=== PATIENT | female | born 1950 | race Two or more races ===

== ENCOUNTER 2020-11-23 02:24 | Inpatient (IN) | payer MEDICARE, MEDICAID ==
[~2020-11-23] VITALS: Ht 162.6 cm; Wt 71.7 kg
[2020-11-23] MEDS ORDERED: DEXAMETHASONE 4MG/ML 1ML VIAL IV ONE (02:30)
[2020-11-23 03:09] LABS: BASOPHILS % 0.7 % (0.0-2.0); HEMATOCRIT. 37.3 % (36.0-48.0); HEMOGLOBIN. 12.5 g/dL (12.0-16.0); LYMPHOCYTES % 11.9 % (20.0-50.0); MEAN CORPUSCULAR HEMOGLOBIN 27.1 pg (28.0-32.0); MEAN CORPUSCULAR VOLUME 80.4 fL (81.0-99.0); MEAN PLATELET VOLUME 9.9 fl (7.4-10.4); NEUTROPHILS % 83.4 % (40.0-76.0); RED BLOOD CELL COUNT 4.64 mill/uL (4.2-5.4)
[2020-11-23 03:14] LABS: CHLORIDE 106 mEq/L (98-107); PLATELET 37 x1000/uL (130-400)
[2020-11-23 03:20] LABS: D-DIMER 0.99 mg/L FEU (<0.50); PROTHROMBIN TIME 10.3 sec (9.6-11.0)
[2020-11-23 04:36] LABS: CLARITY URINE CLEAR (CLEAR); COLOR URINE YELLOW (YELLOW); KETONES URINE NEGATIVE (NEGATIVE); LEUKOCYTE ESTERASE URINE NEGATIVE (NEGATIVE); NITRITE URINE NEGATIVE (NEGATIVE); OCCULT BLOOD URINE NEGATIVE (NEGATIVE); PROTEIN URINE 1+ (NEGATIVE); SPECIFIC GRAVITY URINE 1.013 (1.005-1.030)
[2020-11-23] MEDS ORDERED: CLONIDINE 0.1MG TABLET PO PRN (20:00)
[2020-11-23] MEDS ORDERED: GUAIFENESIN 200MG/10ML SUGAR FREE UDC PO PRN (20:00)
[2020-11-23] MEDS ORDERED: DOCUSATE SODIUM 100MG CAPSULE PO PRN (20:00)
[2020-11-23] MEDS ORDERED: HYDROCODONE/ACETAMINOPHEN 5/325MG TABLET PO PRN (20:00)
[2020-11-23] MEDS ORDERED: DIPHENHYDRAMINE 50MG/ML VIAL IV PRN (20:00)
[2020-11-23] MEDS ORDERED: MAGNESIUM/ALUMINUM HYDROXIDE/SIMETHICONE 30ML UDC PO PRN (20:00)
[2020-11-23] MEDS ORDERED: MORPHINE SULFATE 2 MG/ML CPJ (NOT FOR IM USE) IV PRN (20:00)
[2020-11-23] MEDS ORDERED: ALBUTEROL 6.7GM HFA INHALER ORI PRN (20:00)
[2020-11-23] MEDS ORDERED: LORAZEPAM 2MG/ML CPJ IV PRN (20:00)
[2020-11-24] MEDS: CEFTRIAXONE 1 G PREMIX 50 ML IV SCH ×2 (00:14→20:46)
[2020-11-24] MEDS: AZITHROMYCIN 500 MG in DEXT 5% WATER 250 ML IV SCH ×2 (02:19→20:00)
[2020-11-24 05:15] LABS: BASOPHILS % 0.1 % (0.0-2.0); CHLORIDE 107 mEq/L (98-107); HEMATOCRIT. 36.5 % (36.0-48.0); HEMOGLOBIN. 12.3 g/dL (12.0-16.0); LYMPHOCYTES % 14.1 % (20.0-50.0); MEAN CORPUSCULAR HEMOGLOBIN 26.6 pg (28.0-32.0); MEAN CORPUSCULAR VOLUME 79.1 fL (81.0-99.0); MEAN PLATELET VOLUME 10.3 fl (7.4-10.4); MONOCYTES % 9.2 % (2.0-8.0); NEUTROPHILS % 76.6 % (40.0-76.0); PLATELET 60 x1000/uL (130-400); RED BLOOD CELL COUNT 4.61 mill/uL (4.2-5.4); RED CELL DISTRIBUTION WIDTH 14.5 % (11.6-14.6)
[2020-11-24] MEDS: DEXAMETHASONE 4MG/ML 1ML VIAL IV SCH (09:00)
[2020-11-24] MEDS: ASCORBIC ACID 500 MG TABLET PO SCH (20:46)
[2020-11-24] MEDS: FAMOTIDINE 20MG/2ML VIAL IV SCH (20:46)
[2020-11-25 04:13] LABS: BG BASE EXCESS 2.3 mmol/L (-2.0-2.0); BG CARBOXYHEMOGLOBIN 0.3 % (0.5-1.5); BG DEOXYHEMOGLOBIN 1.4 % (0.0-5.0); BG FRACTION INSPIRED OXYGEN 100; BG HCO3 ACT 25.7 mmol/L (22.0-26.0); BG METHEMOGLOBIN 0.3 % (0.0-1.5); BG OXYGEN SATURATION 98.6 % (92.0-98.5); BG PCO2 36.2 mmHg (35.0-45.0); BG PH 7.469 (7.350-7.450); BG PO2 146.6 mmHg (75.0-100.0); BG SAMPLE SITE RIGHT RADIAL; BG TOTAL HEMOGLOBIN 15.8 g/dL (12.0-18.0); BG VENT MODE MASK - BIPAP
[2020-11-25] MEDS: ERGOCALCIFEROL 50000UNITS CAPSULE PO SCH (11:32)
[2020-11-25] MEDS: ZINC SULFATE 220 MG ( 50 ) CAPSULE PO SCH (11:32)
[2020-11-25] MEDS: FAMOTIDINE 20MG/2ML VIAL IV SCH ×2 (11:33→21:17)
[2020-11-25] MEDS: DEXAMETHASONE 4MG/ML 1ML VIAL IV SCH (11:33)
[2020-11-25] MEDS: ASCORBIC ACID 500 MG TABLET PO SCH ×2 (11:33→21:17)
[2020-11-25 12:00] VITALS: BP 138/64
[2020-11-25 16:00] VITALS: BP 154/66
[2020-11-25 16:04] VITALS: BP 108/46
[2020-11-25] MEDS ORDERED: GABA-532 PO (17:31)
[2020-11-25] MEDS ORDERED: OMEP20CA14 PO (17:31)
[2020-11-25] MEDS ORDERED: SIMV-43 PO (17:32)
[2020-11-25] MEDS ORDERED: NAPR-681 PO (17:33)
[2020-11-25 20:00] VITALS: BP 136/56
[2020-11-25] MEDS ORDERED: AZITHROMYCIN 500 MG in DEXT 5% WATER 250 ML IV SCH (20:00)
[2020-11-26] VITALS: BP 118/63
[2020-11-26] MEDS: CEFTRIAXONE 1,000 MG in DEXTROSE 5% WATER 50 ML IV SCH ×2 (00:24→20:47)
[2020-11-26 04:00] VITALS: BP 136/56
[2020-11-26 08:00] VITALS: BP 148/64
[2020-11-26] MEDS: DEXAMETHASONE 4MG/ML 1ML VIAL IV SCH (08:19)
[2020-11-26] MEDS: ZINC SULFATE 220 MG ( 50 ) CAPSULE PO SCH (08:19)
[2020-11-26] MEDS: ASCORBIC ACID 500 MG TABLET PO SCH ×2 (08:20→20:47)
[2020-11-26] MEDS: FAMOTIDINE 20MG/2ML VIAL IV SCH ×2 (08:20→20:47)
[2020-11-26 11:46] LABS: BG CARBOXYHEMOGLOBIN 0.3 % (0.5-1.5); BG DEOXYHEMOGLOBIN 5.8 % (0.0-5.0); BG FRACTION INSPIRED OXYGEN 70; BG HCO3 ACT 23.2 mmol/L (22.0-26.0); BG OXYGEN SATURATION 94.2 % (92.0-98.5); BG OXYHEMOGLOBIN 93.9 % (94.0-97.0); BG PCO2 33.4 mmHg (35.0-45.0); BG PH 7.459 (7.350-7.450); BG PO2 73.1 mmHg (75.0-100.0); BG SAMPLE SITE RIGHT RADIAL; BG TOTAL HEMOGLOBIN 13.5 g/dL (12.0-18.0); BG VENT MODE MASK - BIPAP
[2020-11-26 12:00] VITALS: BP 136/55
[2020-11-26 12:05] LABS: HEMATOCRIT 37.4 % (36.0-48.0); HEMOGLOBIN 12.4 g/dL (12.0-16.0); MEAN CORPUSCULAR HEMOGLOBIN 26.6 pg (28.0-32.0); MEAN CORPUSCULAR VOLUME 79.8 fL (81.0-99.0); PLATELET 80 x1000/uL (130-400); RED BLOOD CELL COUNT 4.68 mill/uL (4.2-5.4); RED CELL DISTRIBUTION WIDTH 14.2 % (11.6-14.6)
[2020-11-26] MEDS: FUROSEMIDE 20MG/2ML VIAL IVP SCH (15:49)
[2020-11-26 16:00] VITALS: BP 153/58
[2020-11-26 20:00] VITALS: BP 128/65
[2020-11-26] MEDS: AZITHROMYCIN 500 MG TABLET PO SCH (21:16)
[2020-11-27] VITALS: BP 131/61
[2020-11-27 04:00] VITALS: BP 122/59
[2020-11-27] MEDS: ASCORBIC ACID 500 MG TABLET PO SCH ×2 (08:26→21:14)
[2020-11-27] MEDS: ZINC SULFATE 220 MG ( 50 ) CAPSULE PO SCH (08:26)
[2020-11-27] MEDS: FAMOTIDINE 20MG/2ML VIAL IV SCH ×2 (08:26→21:14)
[2020-11-27] MEDS: DEXAMETHASONE 4MG/ML 1ML VIAL IV SCH (08:26)
[2020-11-27] MEDS: FUROSEMIDE 20MG/2ML VIAL IVP SCH (08:26)
[2020-11-27 10:10] VITALS: BP 124/69
[2020-11-27] MEDS: ONDANSETRON HCL 4MG/2ML INJ IV PRN (11:25)
[2020-11-27 12:00] VITALS: BP 116/44
[2020-11-27] MEDS: SODIUM CHLORIDE 0.9% INJ 3ML FLUSH IVF SCH (14:00)
[2020-11-27 16:00] VITALS: BP 125/59
[2020-11-27 20:00] VITALS: BP 123/61
[2020-11-27] MEDS: CEFTRIAXONE 1,000 MG in DEXTROSE 5% WATER 50 ML IV SCH (20:00)
[2020-11-27] MEDS: AZITHROMYCIN 500 MG TABLET PO SCH (21:14)
[2020-11-28] VITALS: BP 145/59
[2020-11-28] MEDS: ONDANSETRON HCL 4MG/2ML INJ IV PRN ×2 (02:44→08:49)
[2020-11-28] MEDS: SODIUM CHLORIDE 0.9% INJ 3ML FLUSH IVF SCH ×3 (02:44→22:06)
[2020-11-28 04:00] VITALS: BP 133/74
[2020-11-28 08:00] VITALS: BP 121/61
[2020-11-28] MEDS: DEXAMETHASONE 4MG/ML 1ML VIAL IV SCH (08:49)
[2020-11-28] MEDS: FAMOTIDINE 20MG/2ML VIAL IV SCH ×2 (08:49→22:06)
[2020-11-28] MEDS: ZINC SULFATE 220 MG ( 50 ) CAPSULE PO SCH (08:50)
[2020-11-28] MEDS: ASCORBIC ACID 500 MG TABLET PO SCH ×2 (08:50→22:06)
[2020-11-28] MEDS: FUROSEMIDE 20MG/2ML VIAL IVP SCH (08:50)
[2020-11-28 12:00] VITALS: BP 130/58
[2020-11-28 13:55] LABS: HEMATOCRIT 42.8 % (36.0-48.0); MEAN CORPUSCULAR HEMOGLOBIN 26.3 pg (28.0-32.0); MEAN CORPUSCULAR VOLUME 80.5 fL (81.0-99.0); PLATELET 99 x1000/uL (130-400); RED BLOOD CELL COUNT 5.31 mill/uL (4.2-5.4); RED CELL DISTRIBUTION WIDTH 14.1 % (11.6-14.6)
[2020-11-28 16:00] VITALS: BP 126/60
[2020-11-28 20:00] VITALS: BP 108/55
[2020-11-29] VITALS: BP 122/69
[2020-11-29 04:00] VITALS: BP 126/60
[2020-11-29] MEDS: SODIUM CHLORIDE 0.9% INJ 3ML FLUSH IVF SCH ×3 (05:53→21:30)
[2020-11-29 08:00] VITALS: BP 125/43
[2020-11-29] MEDS: ZINC SULFATE 220 MG ( 50 ) CAPSULE PO SCH (08:41)
[2020-11-29] MEDS: ASCORBIC ACID 500 MG TABLET PO SCH ×2 (08:41→21:29)
[2020-11-29] MEDS: FUROSEMIDE 20MG/2ML VIAL IVP SCH (08:41)
[2020-11-29] MEDS: ONDANSETRON HCL 4MG/2ML INJ IV PRN (08:41)
[2020-11-29] MEDS: FAMOTIDINE 20MG/2ML VIAL IV SCH ×2 (08:41→21:30)
[2020-11-29] MEDS: DEXAMETHASONE 4MG/ML 1ML VIAL IV SCH (08:41)
[2020-11-29 16:00] VITALS: BP 113/53
[2020-11-29 20:00] VITALS: BP 117/69
[2020-11-30] VITALS: BP 125/68
[2020-11-30] MEDS: SODIUM CHLORIDE 0.9% INJ 3ML FLUSH IVF SCH ×3 (03:21→20:56)
[2020-11-30 04:00] VITALS: BP 118/73
[2020-11-30 08:00] VITALS: BP 123/70
[2020-11-30] MEDS: DEXAMETHASONE 4MG/ML 1ML VIAL IV SCH (08:27)
[2020-11-30] MEDS: FUROSEMIDE 20MG/2ML VIAL IVP SCH (08:27)
[2020-11-30] MEDS: ZINC SULFATE 220 MG ( 50 ) CAPSULE PO SCH (08:27)
[2020-11-30] MEDS: ASCORBIC ACID 500 MG TABLET PO SCH ×2 (08:27→20:56)
[2020-11-30] MEDS: ASPIRIN 81MG EC TABLET PO SCH (08:27)
[2020-11-30] MEDS: FAMOTIDINE 20MG/2ML VIAL IV SCH ×2 (08:27→20:56)
[2020-11-30] MEDS: ONDANSETRON HCL 4MG/2ML INJ IV PRN (08:27)
[2020-11-30 12:00] VITALS: BP 106/69
[2020-11-30 16:00] VITALS: BP 109/68
[2020-11-30 20:00] VITALS: BP 112/59
[2020-12-01] VITALS: BP 137/87
[2020-12-01 04:00] VITALS: BP 130/89
[2020-12-01] MEDS: SODIUM CHLORIDE 0.9% INJ 3ML FLUSH IVF SCH ×3 (05:45→21:45)
[2020-12-01] MEDS: ZINC SULFATE 220 MG ( 50 ) CAPSULE PO SCH (09:58)
[2020-12-01] MEDS: FUROSEMIDE 20MG/2ML VIAL IVP SCH (09:58)
[2020-12-01] MEDS: FAMOTIDINE 20MG/2ML VIAL IV SCH ×2 (09:58→21:44)
[2020-12-01] MEDS: ASPIRIN 81MG EC TABLET PO SCH (09:58)
[2020-12-01] MEDS: ASCORBIC ACID 500 MG TABLET PO SCH ×2 (09:59→21:45)
[2020-12-01] MEDS: DEXAMETHASONE 4MG/ML 1ML VIAL IV SCH (10:00)
[2020-12-01 10:38] VITALS: BP 111/63
[2020-12-01 12:00] VITALS: BP 98/55
[2020-12-01 13:01] LABS: HEMATOCRIT 49.9 % (36.0-48.0); HEMOGLOBIN 15.9 g/dL (12.0-16.0); MEAN CORPUSCULAR HEMOGLOBIN 26.1 pg (28.0-32.0); MEAN CORPUSCULAR VOLUME 81.8 fL (81.0-99.0); PLATELET 88 x1000/uL (130-400); RED CELL DISTRIBUTION WIDTH 14.2 % (11.6-14.6)
[2020-12-01 16:00] VITALS: BP 121/80
[2020-12-01 20:00] VITALS: BP 114/70
[2020-12-02] VITALS: BP 123/77
[2020-12-02 04:00] VITALS: BP 125/77
[2020-12-02] MEDS: SODIUM CHLORIDE 0.9% INJ 3ML FLUSH IVF SCH ×2 (05:06→20:42)
[2020-12-02 07:15] LABS: HEMATOCRIT. 49.4 % (36.0-48.0); HEMOGLOBIN. 15.9 g/dL (12.0-16.0); MEAN CORPUSCULAR HEMOGLOBIN 26.2 pg (28.0-32.0); MEAN CORPUSCULAR VOLUME 81.1 fL (81.0-99.0); MEAN PLATELET VOLUME 11.6 fl (7.4-10.4); PLATELET 85 x1000/uL (130-400); RED BLOOD CELL COUNT 6.09 mill/uL (4.2-5.4); RED CELL DISTRIBUTION WIDTH 14.6 % (11.6-14.6)
[2020-12-02 08:00] VITALS: BP 129/69
[2020-12-02] MEDS: FAMOTIDINE 20MG/2ML VIAL IV SCH ×2 (10:31→20:24)
[2020-12-02] MEDS: DEXAMETHASONE 4MG/ML 1ML VIAL IV SCH (10:31)
[2020-12-02] MEDS: ERGOCALCIFEROL 50000UNITS CAPSULE PO SCH (10:31)
[2020-12-02] MEDS: ZINC SULFATE 220 MG ( 50 ) CAPSULE PO SCH (10:31)
[2020-12-02] MEDS: FUROSEMIDE 20MG/2ML VIAL IVP SCH (10:31)
[2020-12-02] MEDS: ASPIRIN 81MG EC TABLET PO SCH (10:31)
[2020-12-02] MEDS: ASCORBIC ACID 500 MG TABLET PO SCH ×2 (10:32→20:24)
[2020-12-02 12:00] VITALS: BP 123/67
[2020-12-02 12:12] LABS: NUCLEATED RED BLOOD CELLS 1 /100 WBC; PLATELET ESTIMATE DECREAS
[2020-12-02] MEDS ORDERED: SODIUM CHLORIDE 0.45% 500 ML IV ONE (15:00)
[2020-12-02 16:00] VITALS: BP 120/58
[2020-12-02 16:23] LABS: BG BASE EXCESS -0.9 mmol/L (-2.0-2.0); BG CARBOXYHEMOGLOBIN 0.3 % (0.5-1.5); BG DEOXYHEMOGLOBIN 5.4 % (0.0-5.0); BG FRACTION INSPIRED OXYGEN 100; BG METHEMOGLOBIN 0.4 % (0.0-1.5); BG OXYGEN SATURATION 94.6 % (92.0-98.5); BG OXYHEMOGLOBIN 93.9 % (94.0-97.0); BG PCO2 32.3 mmHg (35.0-45.0); BG PH 7.451 (7.350-7.450); BG PO2 76.4 mmHg (75.0-100.0); BG SAMPLE SITE RIGHT BRACHIAL; BG TOTAL HEMOGLOBIN 17.5 g/dL (12.0-18.0); BG VENT MODE MASK - NRB
[2020-12-02 20:00] VITALS: BP_SYST 123; BP_SYST 132; BP_DIAS 69; BP_DIAS 94
[2020-12-03] VITALS: BP 131/74
[2020-12-03 04:00] VITALS: BP 101/57
[2020-12-03] MEDS: SODIUM CHLORIDE 0.9% INJ 3ML FLUSH IVF SCH ×3 (05:22→22:14)
[2020-12-03 08:00] VITALS: BP 134/89
[2020-12-03] MEDS ORDERED: SODIUM CHLORIDE 0.45% 1,000 ML IV SCH (09:00)
[2020-12-03] MEDS: FAMOTIDINE 20MG/2ML VIAL IV SCH ×2 (09:20→22:13)
[2020-12-03] MEDS: DEXAMETHASONE 4MG/ML 1ML VIAL IV SCH (09:20)
[2020-12-03] MEDS: ZINC SULFATE 220 MG ( 50 ) CAPSULE PO SCH (09:21)
[2020-12-03] MEDS: ASCORBIC ACID 500 MG TABLET PO SCH ×3 (09:21→22:13)
[2020-12-03] MEDS: ASPIRIN 81MG EC TABLET PO SCH (09:21)
[2020-12-03 12:00] VITALS: BP 130/84
[2020-12-03] MEDS: DEXTROSE 5% WATER 1,000 ML IV SCH ×2 (13:55→22:13)
[2020-12-03 15:31] LABS: HEMATOCRIT. 49.6 % (36.0-48.0); HEMOGLOBIN. 15.5 g/dL (12.0-16.0); MEAN CORPUSCULAR VOLUME 83.3 fL (81.0-99.0); RED BLOOD CELL COUNT 5.95 mill/uL (4.2-5.4); RED CELL DISTRIBUTION WIDTH 15.3 % (11.6-14.6)
[2020-12-03 16:00] VITALS: BP 149/83
[2020-12-03 16:32] LABS: MEAN PLATELET VOLUME 11.5 fl (7.4-10.4); PLATELET 65 x1000/uL (130-400)
[2020-12-03 16:34] LABS: NUCLEATED RED BLOOD CELLS 2 /100 WBC; PLATELET ESTIMATE DECREASED
[2020-12-03 20:00] VITALS: BP 130/90
[2020-12-04] VITALS: BP 134/47
[2020-12-04 04:00] VITALS: BP 128/53
[2020-12-04] MEDS: SODIUM CHLORIDE 0.9% INJ 3ML FLUSH IVF SCH ×3 (06:13→21:25)
[2020-12-04] MEDS: DEXTROSE 5% WATER 1,000 ML IV SCH (07:00)
[2020-12-04 08:00] VITALS: BP 109/77
[2020-12-04] MEDS: ZINC SULFATE 220 MG ( 50 ) CAPSULE PO SCH (08:46)
[2020-12-04] MEDS: FAMOTIDINE 20MG/2ML VIAL IV SCH ×2 (08:46→21:25)
[2020-12-04] MEDS: ASPIRIN 81MG EC TABLET PO SCH (08:46)
[2020-12-04] MEDS: DEXAMETHASONE 4MG/ML 1ML VIAL IV SCH (08:46)
[2020-12-04] MEDS: ASCORBIC ACID 500 MG TABLET PO SCH ×2 (08:47→21:25)
[2020-12-04] MEDS: SODIUM CHLORIDE 0.45% 1,000 ML IV SCH ×2 (10:44→16:07)
[2020-12-04 12:00] VITALS: BP 127/70
[2020-12-04 14:05] LABS: INR 1.2; PARTIAL THROMBOPLASTIN TIME 22.6 sec (23.4-31.0); PROTHROMBIN TIME 12.4 sec (9.6-11.0)
[2020-12-04 16:00] VITALS: BP 140/66
[2020-12-04 20:00] VITALS: BP 136/66
[2020-12-05] VITALS: BP 144/59
[2020-12-05] MEDS: SODIUM CHLORIDE 0.45% 1,000 ML IV SCH ×3 (03:09→19:01)
[2020-12-05 04:00] VITALS: BP 139/56
[2020-12-05] MEDS: SODIUM CHLORIDE 0.9% INJ 3ML FLUSH IVF SCH ×3 (05:51→21:21)
[2020-12-05 07:05] LABS: HEMATOCRIT. 38.1 % (36.0-48.0); HEMOGLOBIN. 12.3 g/dL (12.0-16.0); MEAN CORPUSCULAR HEMOGLOBIN 26.5 pg (28.0-32.0); RED BLOOD CELL COUNT 4.64 mill/uL (4.2-5.4); RED CELL DISTRIBUTION WIDTH 14.8 % (11.6-14.6)
[2020-12-05 08:00] VITALS: BP 97/58
[2020-12-05] MEDS: ASCORBIC ACID 500 MG TABLET PO SCH ×2 (09:00→21:21)
[2020-12-05 09:38] LABS: NUCLEATED RED BLOOD CELLS 1 /100 WBC
[2020-12-05 09:39] LABS: PLATELET ESTIMATE SLIGHTLY DECREASED
[2020-12-05] MEDS: ZINC SULFATE 220 MG ( 50 ) CAPSULE PO SCH (10:00)
[2020-12-05] MEDS: ASPIRIN 81MG EC TABLET PO SCH (10:01)
[2020-12-05] MEDS: FAMOTIDINE 20MG/2ML VIAL IV SCH (10:01)
[2020-12-05 12:00] VITALS: BP 116/59
[2020-12-05 16:00] VITALS: BP_SYST 139; BP_SYST 171; BP_DIAS 58; BP_DIAS 62
[2020-12-05 20:00] VITALS: BP 113/40
[2020-12-06 00:35] VITALS: BP 121/54
[2020-12-06] MEDS: SODIUM CHLORIDE 0.45% 1,000 ML IV SCH ×3 (01:41→17:41)
[2020-12-06 04:00] VITALS: BP 92/47
[2020-12-06] MEDS: SODIUM CHLORIDE 0.9% INJ 3ML FLUSH IVF SCH ×3 (05:33→22:13)
[2020-12-06 08:00] VITALS: BP 112/44
[2020-12-06] MEDS: ASPIRIN 81MG EC TABLET PO SCH (08:53)
[2020-12-06] MEDS: ZINC SULFATE 220 MG ( 50 ) CAPSULE PO SCH (08:54)
[2020-12-06] MEDS: FAMOTIDINE 20MG TABLET PO SCH (08:54)
[2020-12-06] MEDS: ASCORBIC ACID 500 MG TABLET PO SCH ×2 (08:54→22:13)
[2020-12-06 20:00] VITALS: BP 133/53
[2020-12-07] VITALS: BP 152/52
[2020-12-07] MEDS: SODIUM CHLORIDE 0.45% 1,000 ML IV SCH ×3 (02:01→23:05)
[2020-12-07 04:30] VITALS: BP 126/63
[2020-12-07] MEDS: SODIUM CHLORIDE 0.9% INJ 3ML FLUSH IVF SCH ×3 (06:18→23:06)
[2020-12-07 07:44] LABS: HEMATOCRIT. 35.8 % (36.0-48.0); HEMOGLOBIN. 11.8 g/dL (12.0-16.0); MEAN CORPUSCULAR VOLUME 81.8 fL (81.0-99.0); RED BLOOD CELL COUNT 4.37 mill/uL (4.2-5.4); RED CELL DISTRIBUTION WIDTH 14.6 % (11.6-14.6)
[2020-12-07 10:06] LABS: NUCLEATED RED BLOOD CELLS 1 /100 WBC
[2020-12-07 10:07] LABS: PLATELET ESTIMATE MARKEDLY DECREASED
[2020-12-07 10:31] LABS: PLATELET 18 x1000/uL (130-400)
[2020-12-07 12:00] VITALS: BP 135/62
[2020-12-07] MEDS: ASCORBIC ACID 500 MG TABLET PO SCH ×2 (12:33→23:05)
[2020-12-07] MEDS: FAMOTIDINE 20MG TABLET PO SCH (12:33)
[2020-12-07] MEDS: ZINC SULFATE 220 MG ( 50 ) CAPSULE PO SCH (12:33)
[2020-12-07] MEDS: ACETAMINOPHEN 325MG TABLET PO PRN (12:36)
[2020-12-07] MEDS: ASPIRIN 81MG EC TABLET PO SCH (12:36)
[2020-12-07 20:00] VITALS: BP 136/57
[2020-12-08] VITALS (7 sets, daily range): BP systolic 126–148; BP diastolic 54–75
[2020-12-08] MEDS: SODIUM CHLORIDE 0.9% INJ 3ML FLUSH IVF SCH ×3 (06:30→20:52)
[2020-12-08 07:05] LABS: HEMATOCRIT. 36.5 % (36.0-48.0); HEMOGLOBIN. 12.2 g/dL (12.0-16.0); MEAN CORPUSCULAR HEMOGLOBIN 27.5 pg (28.0-32.0); MEAN PLATELET VOLUME 10.8 fl (7.4-10.4); RED BLOOD CELL COUNT 4.45 mill/uL (4.2-5.4); RED CELL DISTRIBUTION WIDTH 14.7 % (11.6-14.6)
[2020-12-08 08:57] LABS: PLATELET 16 x1000/uL (130-400)
[2020-12-08 09:20] LABS: PLATELET ESTIMATE MARKEDLY DECREASED
[2020-12-08] MEDS: ASCORBIC ACID 500 MG TABLET PO SCH ×2 (09:27→20:52)
[2020-12-08] MEDS: ZINC SULFATE 220 MG ( 50 ) CAPSULE PO SCH (09:27)
[2020-12-08] MEDS: ASPIRIN 81MG EC TABLET PO SCH (09:27)
[2020-12-08] MEDS: FAMOTIDINE 20MG TABLET PO SCH (09:28)
[2020-12-08] MEDS: SODIUM CHLORIDE 0.45% 1,000 ML IV SCH ×2 (12:54→21:07)
[2020-12-09] VITALS: BP 157/74
[2020-12-09 04:00] VITALS: BP 146/59
[2020-12-09] MEDS: SODIUM CHLORIDE 0.9% INJ 3ML FLUSH IVF SCH ×3 (05:15→21:18)
[2020-12-09 08:00] VITALS: BP 142/51
[2020-12-09] MEDS: ASCORBIC ACID 500 MG TABLET PO SCH ×2 (09:00→21:18)
[2020-12-09] MEDS ORDERED: FUROSEMIDE 40MG/4ML VIAL IVP NR (10:30)
[2020-12-09] MEDS: ERGOCALCIFEROL 50000UNITS CAPSULE PO SCH (10:37)
[2020-12-09] MEDS: ZINC SULFATE 220 MG ( 50 ) CAPSULE PO SCH (10:37)
[2020-12-09] MEDS: FAMOTIDINE 20MG TABLET PO SCH (10:37)
[2020-12-09 12:00] VITALS: BP 101/68
[2020-12-09 12:18] LABS: HEMATOCRIT 34.6 % (36.0-48.0); HEMOGLOBIN 11.4 g/dL (12.0-16.0); MEAN CORPUSCULAR HEMOGLOBIN 26.7 pg (28.0-32.0); MEAN CORPUSCULAR VOLUME 81.3 fL (81.0-99.0); RED BLOOD CELL COUNT 4.25 mill/uL (4.2-5.4)
[2020-12-09 12:41] LABS: PLATELET 30 x1000/uL (130-400)
[2020-12-09 16:00] VITALS: BP 117/54
[2020-12-09 20:00] VITALS: BP 121/55
[2020-12-10] VITALS: BP 121/55
[2020-12-10 04:00] VITALS: BP 128/53
[2020-12-10] MEDS: SODIUM CHLORIDE 0.9% INJ 3ML FLUSH IVF SCH ×3 (06:36→22:24)
[2020-12-10 08:00] VITALS: BP 131/45
[2020-12-10] MEDS: ASCORBIC ACID 500 MG TABLET PO SCH ×2 (09:10→22:24)
[2020-12-10] MEDS: FAMOTIDINE 20MG TABLET PO SCH (09:10)
[2020-12-10] MEDS: ZINC SULFATE 220 MG ( 50 ) CAPSULE PO SCH (09:10)
[2020-12-10 12:00] VITALS: BP 127/64
[2020-12-10 12:01] LABS: HEMATOCRIT. 37.9 % (36.0-48.0); HEMOGLOBIN. 12.3 g/dL (12.0-16.0); MEAN CORPUSCULAR HEMOGLOBIN 26.4 pg (28.0-32.0); MEAN CORPUSCULAR VOLUME 81.2 fL (81.0-99.0); PLATELET 55 x1000/uL (130-400); RED BLOOD CELL COUNT 4.67 mill/uL (4.2-5.4)
[2020-12-10] MEDS: DEXTROSE 5% WATER 1,000 ML IV SCH (14:44)
[2020-12-10 16:00] VITALS: BP 134/82
[2020-12-10 18:00] LABS: PLATELET ESTIMATE DECREASED
[2020-12-10 20:00] VITALS: BP 125/70
[2020-12-11] VITALS: BP 111/71
[2020-12-11 04:00] VITALS: BP 150/75
[2020-12-11] MEDS: DEXTROSE 5% WATER 1,000 ML IV SCH ×2 (06:49→21:25)
[2020-12-11] MEDS: SODIUM CHLORIDE 0.9% INJ 3ML FLUSH IVF SCH ×3 (06:49→21:10)
[2020-12-11 08:00] VITALS: BP 141/69
[2020-12-11] MEDS: FAMOTIDINE 20MG TABLET PO SCH (09:22)
[2020-12-11] MEDS: ZINC SULFATE 220 MG ( 50 ) CAPSULE PO SCH (09:22)
[2020-12-11 11:03] LABS: HEMATOCRIT. 38.6 % (36.0-48.0); HEMOGLOBIN. 12.4 g/dL (12.0-16.0); MEAN CORPUSCULAR HEMOGLOBIN 26.3 pg (28.0-32.0); MEAN CORPUSCULAR VOLUME 81.8 fL (81.0-99.0); MEAN PLATELET VOLUME 11.1 fl (7.4-10.4); PLATELET 82 x1000/uL (130-400); RED BLOOD CELL COUNT 4.72 mill/uL (4.2-5.4); RED CELL DISTRIBUTION WIDTH 14.8 % (11.6-14.6)
[2020-12-11 12:00] VITALS: BP 146/63
[2020-12-11] MEDS ORDERED: POTASSIUM CHLORIDE 20MEQ/PACKET PO SCH (12:00)
[2020-12-11] MEDS: ASCORBIC ACID 500 MG TABLET PO SCH ×2 (13:41→21:10)
[2020-12-11 14:44] LABS: PLATELET ESTIMATE DECREASED
[2020-12-11 16:00] VITALS: BP 129/72
[2020-12-11 20:00] VITALS: BP 140/68
[2020-12-12] VITALS: BP 151/60
[2020-12-12 04:00] VITALS: BP 128/78
[2020-12-12 07:51] LABS: EOSINOPHILS % 5.6 % (0.0-5.0); HEMATOCRIT. 33.1 % (36.0-48.0); HEMOGLOBIN. 10.6 g/dL (12.0-16.0); LYMPHOCYTES % 9.7 % (20.0-50.0); MEAN CORPUSCULAR HEMOGLOBIN 26.3 pg (28.0-32.0); MEAN PLATELET VOLUME 11.1 fl (7.4-10.4); MONOCYTES % 3.6 % (2.0-8.0); NEUTROPHILS % 80.1 % (40.0-76.0); PLATELET 104 x1000/uL (130-400); RED BLOOD CELL COUNT 4.04 mill/uL (4.2-5.4); RED CELL DISTRIBUTION WIDTH 15.1 % (11.6-14.6)
[2020-12-12 08:00] VITALS: BP 107/77
[2020-12-12 08:20] LABS: PHOSPHORUS 3.9 mg/dL (2.5-4.9)
[2020-12-12] MEDS: FAMOTIDINE 20MG TABLET PO SCH (08:46)
[2020-12-12] MEDS: ASCORBIC ACID 500 MG TABLET PO SCH ×2 (08:46→21:03)
[2020-12-12] MEDS: ZINC SULFATE 220 MG ( 50 ) CAPSULE PO SCH (08:46)
[2020-12-12] MEDS ORDERED: METOPROLOL TARTRATE 25MG TABLET PO SCH (09:00)
[2020-12-12 10:45] LABS: BG BASE EXCESS -0.1 mmol/L (-2.0-2.0); BG CARBOXYHEMOGLOBIN 0.4 % (0.5-1.5); BG DEOXYHEMOGLOBIN 3.2 % (0.0-5.0); BG FRACTION INSPIRED OXYGEN 70; BG HCO3 ACT 23.1 mmol/L (22.0-26.0); BG METHEMOGLOBIN 0.3 % (0.0-1.5); BG OXYGEN SATURATION 96.8 % (92.0-98.5); BG OXYHEMOGLOBIN 96.1 % (94.0-97.0); BG PCO2 33.1 mmHg (35.0-45.0); BG PH 7.462 (7.350-7.450); BG PO2 89.3 mmHg (75.0-100.0); BG SAMPLE SITE RIGHT RADIAL; BG TOTAL HEMOGLOBIN 11.6 g/dL (12.0-18.0); BG TOTAL RESPIRATORY RATE 33 b/min; BG VENT MODE MASK - BIPAP
[2020-12-12] MEDS ORDERED: POTASSIUM CHLORIDE INJ 40 MEQ in DEXT 5% WATER 250 ML IV SCH (11:00)
[2020-12-12 12:00] VITALS: BP 115/75
[2020-12-12] MEDS: SODIUM CHLORIDE 0.9% INJ 3ML FLUSH IVF SCH ×2 (14:00→21:03)
[2020-12-12 16:00] VITALS: BP 121/54
[2020-12-12] MEDS: DEXTROSE 5% WATER 1,000 ML IV SCH (18:02)
[2020-12-12] MEDS: APIXABAN 5 MG TABLET PO SCH (18:02)
[2020-12-12] MEDS: ACETAMINOPHEN 325MG TABLET PO PRN (18:18)
[2020-12-12 20:00] VITALS: BP 115/55
[2020-12-12] MEDS: METOPROLOL TARTRATE 25MG TABLET PO SCH (21:06)
[2020-12-13] VITALS: BP 108/83
[2020-12-13 04:00] VITALS: BP 122/49
[2020-12-13] MEDS: SODIUM CHLORIDE 0.9% INJ 3ML FLUSH IVF SCH ×3 (05:17→22:17)
[2020-12-13 05:41] LABS: BASOPHILS % 0.9 % (0.0-2.0); EOSINOPHILS % 8.8 % (0.0-5.0); HEMATOCRIT. 32.6 % (36.0-48.0); HEMOGLOBIN. 10.6 g/dL (12.0-16.0); LYMPHOCYTES % 8.2 % (20.0-50.0); MEAN CORPUSCULAR HEMOGLOBIN 26.6 pg (28.0-32.0); MEAN PLATELET VOLUME 10.4 fl (7.4-10.4); MONOCYTES % 3.7 % (2.0-8.0); NEUTROPHILS % 78.4 % (40.0-76.0); PLATELET 102 x1000/uL (130-400); RED BLOOD CELL COUNT 3.98 mill/uL (4.2-5.4); RED CELL DISTRIBUTION WIDTH 14.9 % (11.6-14.6)
[2020-12-13 08:00] VITALS: BP 114/43
[2020-12-13] MEDS: APIXABAN 5 MG TABLET PO SCH ×2 (08:53→17:32)
[2020-12-13] MEDS: ASCORBIC ACID 500 MG TABLET PO SCH ×2 (08:53→22:17)
[2020-12-13] MEDS: METOPROLOL TARTRATE 25MG TABLET PO SCH ×2 (08:53→22:17)
[2020-12-13] MEDS: ZINC SULFATE 220 MG ( 50 ) CAPSULE PO SCH (08:53)
[2020-12-13] MEDS: FAMOTIDINE 20MG TABLET PO SCH (08:53)
[2020-12-13] MEDS: ACETAMINOPHEN 325MG TABLET PO PRN ×2 (09:52→17:39)
[2020-12-13] MEDS ORDERED: POTASSIUM CHLORIDE 20MEQ/PACKET PO SCH (11:00)
[2020-12-13 12:00] VITALS: BP 116/42
[2020-12-13 16:00] VITALS: BP 103/42
[2020-12-13] MEDS: METHYLPREDNISOLONE SOD SUCC 40 MG/ML VIAL IV SCH (17:32)
[2020-12-13] MEDS: DEXTROSE 5% WATER 1,000 ML IV SCH (17:41)
[2020-12-13 20:00] VITALS: BP 120/53
[2020-12-14] VITALS: BP 123/57
[2020-12-14] MEDS: DEXTROSE 5% WATER 1,000 ML IV SCH (02:08)
[2020-12-14 04:00] VITALS: BP 116/47
[2020-12-14] MEDS: SODIUM CHLORIDE 0.9% INJ 3ML FLUSH IVF SCH ×3 (06:43→21:23)
[2020-12-14 07:59] LABS: HEMATOCRIT. 33.4 % (36.0-48.0); HEMOGLOBIN. 10.7 g/dL (12.0-16.0); MEAN CORPUSCULAR HEMOGLOBIN 26.4 pg (28.0-32.0); MEAN CORPUSCULAR VOLUME 82.2 fL (81.0-99.0); MEAN PLATELET VOLUME 10.4 fl (7.4-10.4); PHOSPHORUS 4.3 mg/dL (2.5-4.9); PLATELET 104 x1000/uL (130-400); RED BLOOD CELL COUNT 4.07 mill/uL (4.2-5.4)
[2020-12-14 08:00] VITALS: BP 117/61
[2020-12-14] MEDS: ZINC SULFATE 220 MG ( 50 ) CAPSULE PO SCH (09:14)
[2020-12-14] MEDS: METOPROLOL TARTRATE 25MG TABLET PO SCH ×2 (09:14→21:22)
[2020-12-14] MEDS: FAMOTIDINE 20MG TABLET PO SCH (09:14)
[2020-12-14] MEDS: METHYLPREDNISOLONE SOD SUCC 40 MG/ML VIAL IV SCH ×2 (09:14→16:37)
[2020-12-14] MEDS: APIXABAN 5 MG TABLET PO SCH ×2 (09:14→16:37)
[2020-12-14] MEDS: ASCORBIC ACID 500 MG TABLET PO SCH ×2 (09:14→21:22)
[2020-12-14 12:00] VITALS: BP 106/41
[2020-12-14 16:00] VITALS: BP 115/63
[2020-12-14 20:00] VITALS: BP 140/62
[2020-12-14 23:07] LABS: PLATELET ESTIMATE DECREASED
[2020-12-15] VITALS: BP 159/69
[2020-12-15 04:00] VITALS: BP 118/69
[2020-12-15] MEDS: SODIUM CHLORIDE 0.9% INJ 3ML FLUSH IVF SCH ×2 (05:06→22:00)
[2020-12-15 06:39] LABS: HEMATOCRIT. 40.5 % (36.0-48.0); HEMOGLOBIN. 12.6 g/dL (12.0-16.0); MEAN CORPUSCULAR VOLUME 83.3 fL (81.0-99.0); MEAN PLATELET VOLUME 10.4 fl (7.4-10.4); PLATELET 99 x1000/uL (130-400); RED BLOOD CELL COUNT 4.86 mill/uL (4.2-5.4); RED CELL DISTRIBUTION WIDTH 15.2 % (11.6-14.6)
[2020-12-15] MEDS: ZINC SULFATE 220 MG ( 50 ) CAPSULE PO SCH (09:46)
[2020-12-15] MEDS: ASCORBIC ACID 500 MG TABLET PO SCH ×2 (09:46→21:34)
[2020-12-15] MEDS: METOPROLOL TARTRATE 25MG TABLET PO SCH ×2 (09:46→21:39)
[2020-12-15] MEDS: METHYLPREDNISOLONE SOD SUCC 40 MG/ML VIAL IV SCH (09:46)
[2020-12-15] MEDS: APIXABAN 5 MG TABLET PO SCH (09:49)
[2020-12-15] MEDS: FAMOTIDINE 20MG TABLET PO SCH (09:49)
[2020-12-15 12:00] VITALS: BP 109/50
[2020-12-15 16:00] VITALS: BP 105/57
[2020-12-15 20:00] VITALS: BP 127/49
[2020-12-15 22:05] LABS: NUCLEATED RED BLOOD CELLS 1 /100 WBC; PLATELET ESTIMATE DECREASED
[2020-12-16] VITALS: BP 103/43
[2020-12-16 04:00] VITALS: BP 114/55
[2020-12-16 05:48] LABS: BASOPHILS % 0.5 % (0.0-2.0); EOSINOPHILS % 0.5 % (0.0-5.0); HEMATOCRIT. 37.5 % (36.0-48.0); HEMOGLOBIN. 12.1 g/dL (12.0-16.0); LYMPHOCYTES % 7.7 % (20.0-50.0); MEAN CORPUSCULAR HEMOGLOBIN 26.7 pg (28.0-32.0); MEAN PLATELET VOLUME 10.4 fl (7.4-10.4); MONOCYTES % 4.4 % (2.0-8.0); NEUTROPHILS % 86.9 % (40.0-76.0); PLATELET 111 x1000/uL (130-400); RED BLOOD CELL COUNT 4.53 mill/uL (4.2-5.4); RED CELL DISTRIBUTION WIDTH 15.4 % (11.6-14.6)
[2020-12-16] MEDS: SODIUM CHLORIDE 0.9% INJ 3ML FLUSH IVF SCH ×5 (06:07→21:50)
[2020-12-16 08:00] VITALS: BP 114/55
[2020-12-16] MEDS: APIXABAN 5 MG TABLET PO SCH ×2 (09:21→16:53)
[2020-12-16] MEDS: METHYLPREDNISOLONE SOD SUCC 40 MG/ML VIAL IV SCH ×2 (09:21→16:53)
[2020-12-16] MEDS: ERGOCALCIFEROL 50000UNITS CAPSULE PO SCH (09:21)
[2020-12-16] MEDS: ASCORBIC ACID 500 MG TABLET PO SCH ×2 (09:22→21:50)
[2020-12-16] MEDS: ZINC SULFATE 220 MG ( 50 ) CAPSULE PO SCH (09:22)
[2020-12-16] MEDS: METOPROLOL TARTRATE 25MG TABLET PO SCH ×2 (09:22→21:00)
[2020-12-16] MEDS: FAMOTIDINE 20MG TABLET PO SCH (09:22)
[2020-12-16] MEDS: DEXTROSE 5% WATER 1,000 ML IV SCH ×2 (11:26→11:44)
[2020-12-16 12:00] VITALS: BP 131/71
[2020-12-16 16:00] VITALS: BP 140/49
[2020-12-16 20:00] VITALS: BP 111/56
[2020-12-17] VITALS: BP 151/40
[2020-12-17 04:00] VITALS: BP 132/68
[2020-12-17] MEDS: SODIUM CHLORIDE 0.9% INJ 3ML FLUSH IVF SCH ×3 (05:20→21:03)
[2020-12-17 08:00] VITALS: BP 117/64
[2020-12-17 09:22] LABS: HEMOGLOBIN. 11.4 g/dL (12.0-16.0); MEAN CORPUSCULAR HEMOGLOBIN 26.2 pg (28.0-32.0); MEAN CORPUSCULAR VOLUME 82.2 fL (81.0-99.0); MEAN PLATELET VOLUME 10.5 fl (7.4-10.4); PLATELET 88 x1000/uL (130-400); RED BLOOD CELL COUNT 4.37 mill/uL (4.2-5.4); RED CELL DISTRIBUTION WIDTH 15.4 % (11.6-14.6)
[2020-12-17] MEDS: ASCORBIC ACID 500 MG TABLET PO SCH ×2 (10:05→21:02)
[2020-12-17] MEDS: METOPROLOL TARTRATE 25MG TABLET PO SCH ×2 (10:05→21:00)
[2020-12-17] MEDS: METHYLPREDNISOLONE SOD SUCC 40 MG/ML VIAL IV SCH ×2 (10:05→16:41)
[2020-12-17] MEDS: FAMOTIDINE 20MG TABLET PO SCH (10:05)
[2020-12-17] MEDS: ZINC SULFATE 220 MG ( 50 ) CAPSULE PO SCH (10:06)
[2020-12-17] MEDS: APIXABAN 5 MG TABLET PO SCH ×2 (10:06→16:41)
[2020-12-17] MEDS: DEXTROSE 5% WATER 1,000 ML IV SCH (11:27)
[2020-12-17 12:00] VITALS: BP 107/37
[2020-12-17 16:00] VITALS: BP 129/77
[2020-12-17 17:19] LABS: PLATELET ESTIMATE DECREASED
[2020-12-17 20:00] VITALS: BP 120/61
[2020-12-18] VITALS: BP 114/49
[2020-12-18 04:00] VITALS: BP 127/62
[2020-12-18] MEDS: SODIUM CHLORIDE 0.9% INJ 3ML FLUSH IVF SCH ×3 (05:43→21:06)
[2020-12-18 08:00] VITALS: BP 120/58
[2020-12-18] MEDS: METHYLPREDNISOLONE SOD SUCC 40 MG/ML VIAL IV SCH ×2 (09:58→16:15)
[2020-12-18] MEDS: APIXABAN 5 MG TABLET PO SCH ×2 (09:58→16:15)
[2020-12-18] MEDS: FAMOTIDINE 20MG TABLET PO SCH (09:58)
[2020-12-18] MEDS: ASCORBIC ACID 500 MG TABLET PO SCH ×2 (09:58→20:44)
[2020-12-18] MEDS: ZINC SULFATE 220 MG ( 50 ) CAPSULE PO SCH (09:59)
[2020-12-18] MEDS: METOPROLOL TARTRATE 25MG TABLET PO SCH ×2 (09:59→20:43)
[2020-12-18] MEDS: DEXTROSE 5% WATER 1,000 ML IV SCH (10:40)
[2020-12-18 12:00] VITALS: BP 121/50
[2020-12-18 16:00] VITALS: BP 118/47
[2020-12-18 20:00] VITALS: BP 108/61
[2020-12-19] VITALS: BP 140/89
[2020-12-19 04:00] VITALS: BP 135/68
[2020-12-19] MEDS: SODIUM CHLORIDE 0.9% INJ 3ML FLUSH IVF SCH ×3 (05:10→21:05)
[2020-12-19 08:00] VITALS: BP 117/46
[2020-12-19] MEDS: ASCORBIC ACID 500 MG TABLET PO SCH ×2 (09:00→20:40)
[2020-12-19] MEDS: METHYLPREDNISOLONE SOD SUCC 40 MG/ML VIAL IV SCH ×2 (10:18→17:15)
[2020-12-19] MEDS: METOPROLOL TARTRATE 25MG TABLET PO SCH ×2 (10:18→20:41)
[2020-12-19] MEDS: ZINC SULFATE 220 MG ( 50 ) CAPSULE PO SCH (10:18)
[2020-12-19] MEDS: FAMOTIDINE 20MG TABLET PO SCH (10:19)
[2020-12-19] MEDS: APIXABAN 5 MG TABLET PO SCH ×2 (10:19→17:15)
[2020-12-19] MEDS: DEXTROSE 5% WATER 1,000 ML IV SCH (10:19)
[2020-12-19 12:00] VITALS: BP 86/42
[2020-12-19 16:00] VITALS: BP 182/74
[2020-12-19 20:00] VITALS: BP 127/49
[2020-12-19] MEDS: ACETAMINOPHEN 325MG TABLET PO PRN (20:46)
[2020-12-20] VITALS: BP 130/60
[2020-12-20 04:00] VITALS: BP 136/44
[2020-12-20] MEDS: SODIUM CHLORIDE 0.9% INJ 3ML FLUSH IVF SCH ×4 (05:32→21:47)
[2020-12-20 07:33] LABS: HEMATOCRIT. 33.8 % (36.0-48.0); HEMOGLOBIN. 10.9 g/dL (12.0-16.0); MEAN CORPUSCULAR HEMOGLOBIN 26.3 pg (28.0-32.0); MEAN CORPUSCULAR VOLUME 81.8 fL (81.0-99.0); MEAN PLATELET VOLUME 10.4 fl (7.4-10.4); PLATELET 127 x1000/uL (130-400); RED BLOOD CELL COUNT 4.13 mill/uL (4.2-5.4); RED CELL DISTRIBUTION WIDTH 15.1 % (11.6-14.6)
[2020-12-20 08:00] VITALS: BP 127/45
[2020-12-20] MEDS: METOPROLOL TARTRATE 25MG TABLET PO SCH ×2 (09:55→21:00)
[2020-12-20] MEDS: ZINC SULFATE 220 MG ( 50 ) CAPSULE PO SCH (09:55)
[2020-12-20] MEDS: METHYLPREDNISOLONE SOD SUCC 40 MG/ML VIAL IV SCH ×2 (09:55→17:48)
[2020-12-20] MEDS: ASCORBIC ACID 500 MG TABLET PO SCH ×2 (09:55→21:23)
[2020-12-20] MEDS: FAMOTIDINE 20MG TABLET PO SCH (09:55)
[2020-12-20] MEDS: APIXABAN 5 MG TABLET PO SCH ×2 (09:55→17:49)
[2020-12-20 12:00] VITALS: BP 159/72
[2020-12-20 14:53] LABS: PLATELET ESTIMATE SLIGHTLY DECREASED
[2020-12-20 16:00] VITALS: BP 128/50
[2020-12-20 20:00] VITALS: BP 146/47
[2020-12-21] VITALS: BP 118/52
[2020-12-21 04:00] VITALS: BP 147/64
[2020-12-21 07:00] LABS: HEMATOCRIT. 34.5 % (36.0-48.0); HEMOGLOBIN. 11.2 g/dL (12.0-16.0); MEAN CORPUSCULAR HEMOGLOBIN 26.9 pg (28.0-32.0); MEAN CORPUSCULAR VOLUME 82.5 fL (81.0-99.0); MEAN PLATELET VOLUME 10.2 fl (7.4-10.4); PLATELET 161 x1000/uL (130-400); RED BLOOD CELL COUNT 4.19 mill/uL (4.2-5.4)
[2020-12-21 07:14] LABS: CHLORIDE 110 mEq/L (98-107)
[2020-12-21 08:00] VITALS: BP 125/60
[2020-12-21] MEDS: FAMOTIDINE 20MG TABLET PO SCH (09:00)
[2020-12-21] MEDS: DEXTROSE 5% WATER 1,000 ML IV SCH (09:52)
[2020-12-21] MEDS: ASCORBIC ACID 500 MG TABLET PO SCH ×2 (09:54→21:25)
[2020-12-21] MEDS: METHYLPREDNISOLONE SOD SUCC 40 MG/ML VIAL IV SCH ×2 (09:54→16:30)
[2020-12-21] MEDS: METOPROLOL TARTRATE 25MG TABLET PO SCH ×2 (09:55→21:00)
[2020-12-21] MEDS: APIXABAN 5 MG TABLET PO SCH ×2 (09:56→16:30)
[2020-12-21] MEDS: ZINC SULFATE 220 MG ( 50 ) CAPSULE PO SCH (09:56)
[2020-12-21 12:00] VITALS: BP 125/51
[2020-12-21] MEDS: SODIUM CHLORIDE 0.9% INJ 3ML FLUSH IVF SCH ×2 (13:25→21:26)
[2020-12-21 16:00] VITALS: BP 141/47
[2020-12-21 20:00] VITALS: BP 113/36
[2020-12-21 20:17] LABS: PLATELET ESTIMATE NORMAL
[2020-12-22] VITALS: BP 141/66
[2020-12-22 04:00] VITALS: BP 124/76
[2020-12-22 08:00] VITALS: BP 137/75
[2020-12-22] MEDS: ZINC SULFATE 220 MG ( 50 ) CAPSULE PO SCH (09:33)
[2020-12-22] MEDS: METHYLPREDNISOLONE SOD SUCC 40 MG/ML VIAL IV SCH ×2 (09:33→16:13)
[2020-12-22] MEDS: APIXABAN 5 MG TABLET PO SCH ×2 (09:33→16:14)
[2020-12-22] MEDS: DEXTROSE 5% WATER 1,000 ML IV SCH (09:34)
[2020-12-22] MEDS: FAMOTIDINE 20MG TABLET PO SCH (09:34)
[2020-12-22] MEDS: ASCORBIC ACID 500 MG TABLET PO SCH ×2 (09:34→20:55)
[2020-12-22] MEDS: METOPROLOL TARTRATE 25MG TABLET PO SCH ×2 (09:34→20:55)
[2020-12-22 09:47] LABS: HEMATOCRIT. 36.4 % (36.0-48.0); HEMOGLOBIN. 11.8 g/dL (12.0-16.0); MEAN CORPUSCULAR HEMOGLOBIN 26.5 pg (28.0-32.0); MEAN CORPUSCULAR VOLUME 81.5 fL (81.0-99.0); MEAN PLATELET VOLUME 9.8 fl (7.4-10.4); PLATELET 212 x1000/uL (130-400); RED BLOOD CELL COUNT 4.46 mill/uL (4.2-5.4); RED CELL DISTRIBUTION WIDTH 15.6 % (11.6-14.6)
[2020-12-22 10:01] LABS: CHLORIDE 105 mEq/L (98-107)
[2020-12-22 12:00] VITALS: BP 120/56
[2020-12-22 14:02] LABS: PLATELET ESTIMATE NORMAL
[2020-12-22 16:00] VITALS: BP_SYST 115; BP_SYST 92; BP_DIAS 60
[2020-12-22 20:00] VITALS: BP 109/35
[2020-12-23 04:00] VITALS: BP 128/62
[2020-12-23 06:13] LABS: HEMATOCRIT. 36.6 % (36.0-48.0); HEMOGLOBIN. 11.9 g/dL (12.0-16.0); MEAN CORPUSCULAR HEMOGLOBIN 26.4 pg (28.0-32.0); MEAN CORPUSCULAR VOLUME 81.4 fL (81.0-99.0); MEAN PLATELET VOLUME 9.7 fl (7.4-10.4); PLATELET 221 x1000/uL (130-400)
[2020-12-23 07:00] LABS: CHLORIDE 106 mEq/L (98-107)
[2020-12-23 08:00] VITALS: BP 134/65
[2020-12-23] MEDS: METHYLPREDNISOLONE SOD SUCC 40 MG/ML VIAL IV SCH ×2 (08:52→18:12)
[2020-12-23] MEDS: APIXABAN 5 MG TABLET PO SCH ×2 (09:40→17:58)
[2020-12-23] MEDS: METOPROLOL TARTRATE 25MG TABLET PO SCH ×2 (09:40→22:23)
[2020-12-23] MEDS: ZINC SULFATE 220 MG ( 50 ) CAPSULE PO SCH (09:40)
[2020-12-23] MEDS: ERGOCALCIFEROL 50000UNITS CAPSULE PO SCH (09:40)
[2020-12-23 12:00] VITALS: BP 125/46
[2020-12-23 15:31] LABS: PLATELET ESTIMATE NORMAL
[2020-12-23 16:00] VITALS: BP 106/54
[2020-12-23 20:00] VITALS: BP 133/56
[2020-12-24] VITALS (7 sets, daily range): BP systolic 122–138; BP diastolic 39–63
[2020-12-24] MEDS: METHYLPREDNISOLONE SOD SUCC 40 MG/ML VIAL IV SCH ×2 (08:36→17:34)
[2020-12-24] MEDS: METOPROLOL TARTRATE 25MG TABLET PO SCH ×2 (09:00→23:03)
[2020-12-24] MEDS: APIXABAN 5 MG TABLET PO SCH ×2 (09:14→17:00)
[2020-12-24] MEDS ORDERED: IPRATROPIUM/ALBUTEROL 0.5-3(2.5)MG/3ML NEB HHN PRN (12:15)
[2020-12-25] VITALS (9 sets, daily range): BP systolic 116–139; BP diastolic 48–86
[2020-12-25] MEDS: METHYLPREDNISOLONE SOD SUCC 40 MG/ML VIAL IV SCH ×2 (12:53→17:32)
[2020-12-25] MEDS: APIXABAN 5 MG TABLET PO SCH ×2 (12:53→17:32)
[2020-12-25] MEDS: METOPROLOL TARTRATE 25MG TABLET PO SCH ×2 (14:46→21:00)
[2020-12-25] MEDS: HYDROCODONE/ACETAMINOPHEN 5/325MG TABLET PO PRN (18:47)
[2020-12-25] MEDS: IPRATROPIUM/ALBUTEROL 0.5-3(2.5)MG/3ML NEB HHN SCH (22:34)
[2020-12-26] VITALS (8 sets, daily range): BP systolic 125–154; BP diastolic 51–82
[2020-12-26] MEDS: HYDROCODONE/ACETAMINOPHEN 5/325MG TABLET PO PRN ×3 (02:26→17:50)
[2020-12-26] MEDS: IPRATROPIUM/ALBUTEROL 0.5-3(2.5)MG/3ML NEB HHN SCH ×4 (04:06→21:19)
[2020-12-26] MEDS: METOPROLOL TARTRATE 25MG TABLET PO SCH ×2 (09:45→20:41)
[2020-12-26] MEDS: APIXABAN 5 MG TABLET PO SCH ×2 (09:45→17:49)
[2020-12-26] MEDS: METHYLPREDNISOLONE SOD SUCC 40 MG/ML VIAL IV SCH ×2 (09:45→17:49)
[2020-12-27] VITALS (12 sets, daily range): BP systolic 129–158; BP diastolic 63–93
[2020-12-27] MEDS: IPRATROPIUM/ALBUTEROL 0.5-3(2.5)MG/3ML NEB HHN SCH ×3 (03:10→13:31)
[2020-12-27] MEDS: METHYLPREDNISOLONE SOD SUCC 40 MG/ML VIAL IV SCH ×2 (09:53→18:32)
[2020-12-27] MEDS: APIXABAN 5 MG TABLET PO SCH ×2 (09:53→18:32)
[2020-12-27] MEDS: METOPROLOL TARTRATE 25MG TABLET PO SCH ×2 (09:54→21:04)
[2020-12-27 16:19] LABS: HEMOGLOBIN. 11.3 g/dL (12.0-16.0); MEAN CORPUSCULAR HEMOGLOBIN 26.4 pg (28.0-32.0); MEAN CORPUSCULAR VOLUME 82.2 fL (81.0-99.0); MEAN PLATELET VOLUME 9.4 fl (7.4-10.4); PLATELET 214 x1000/uL (130-400); RED BLOOD CELL COUNT 4.26 mill/uL (4.2-5.4); RED CELL DISTRIBUTION WIDTH 15.6 % (11.6-14.6)
[2020-12-27 16:40] LABS: CHLORIDE 107 mEq/L (98-107)
[2020-12-27 17:16] LABS: PLATELET ESTIMATE NORMAL
[2020-12-28] VITALS (8 sets, daily range): BP systolic 126–148; BP diastolic 58–79
[2020-12-28] MEDS: IPRATROPIUM/ALBUTEROL 0.5-3(2.5)MG/3ML NEB HHN SCH ×4 (00:36→21:32)
[2020-12-28 07:39] LABS: CHLORIDE 108 mEq/L (98-107)
[2020-12-28 07:46] LABS: HEMATOCRIT. 36.4 % (36.0-48.0); HEMOGLOBIN. 11.6 g/dL (12.0-16.0); MEAN CORPUSCULAR VOLUME 81.9 fL (81.0-99.0); MEAN PLATELET VOLUME 10.1 fl (7.4-10.4); PLATELET 223 x1000/uL (130-400); RED BLOOD CELL COUNT 4.44 mill/uL (4.2-5.4); RED CELL DISTRIBUTION WIDTH 15.7 % (11.6-14.6)
[2020-12-28] MEDS: APIXABAN 5 MG TABLET PO SCH ×2 (09:53→16:47)
[2020-12-28] MEDS: METOPROLOL TARTRATE 25MG TABLET PO SCH ×2 (09:54→20:55)
[2020-12-28] MEDS: METHYLPREDNISOLONE SOD SUCC 40 MG/ML VIAL IV SCH ×2 (10:13→16:47)
[2020-12-28 23:26] LABS: PLATELET ESTIMATE NORMAL
[2020-12-29] VITALS (9 sets, daily range): BP systolic 109–141; BP diastolic 44–97
[2020-12-29] MEDS: HYDROCODONE/ACETAMINOPHEN 5/325MG TABLET PO PRN ×2 (02:17→23:18)
[2020-12-29] MEDS: IPRATROPIUM/ALBUTEROL 0.5-3(2.5)MG/3ML NEB HHN SCH ×3 (02:56→11:25)
[2020-12-29] MEDS: METOPROLOL TARTRATE 25MG TABLET PO SCH ×2 (08:47→21:38)
[2020-12-29] MEDS: APIXABAN 5 MG TABLET PO SCH ×2 (08:47→17:31)
[2020-12-29] MEDS: METHYLPREDNISOLONE SOD SUCC 40 MG/ML VIAL IV SCH ×2 (08:47→17:31)
[2020-12-30] VITALS (9 sets, daily range): BP systolic 120–145; BP diastolic 51–89
[2020-12-30] MEDS: METHYLPREDNISOLONE SOD SUCC 40 MG/ML VIAL IV SCH ×2 (08:35→18:27)
[2020-12-30] MEDS: METOPROLOL TARTRATE 25MG TABLET PO SCH ×2 (08:35→20:34)
[2020-12-30] MEDS: APIXABAN 5 MG TABLET PO SCH ×2 (08:35→18:26)
[2020-12-30] MEDS: IPRATROPIUM/ALBUTEROL 0.5-3(2.5)MG/3ML NEB HHN SCH ×3 (10:00→21:25)
[2020-12-30 11:01] LABS: HEMATOCRIT. 37.8 % (36.0-48.0); HEMOGLOBIN. 12.1 g/dL (12.0-16.0); MEAN CORPUSCULAR HEMOGLOBIN 26.2 pg (28.0-32.0); MEAN CORPUSCULAR VOLUME 81.6 fL (81.0-99.0); MEAN PLATELET VOLUME 9.7 fl (7.4-10.4); PLATELET 180 x1000/uL (130-400); RED BLOOD CELL COUNT 4.63 mill/uL (4.2-5.4); RED CELL DISTRIBUTION WIDTH 15.6 % (11.6-14.6)
[2020-12-30 11:56] LABS: CHLORIDE 111 mEq/L (98-107)
[2020-12-30 12:17] LABS: PLATELET ESTIMATE NORMAL
[2020-12-31] VITALS (12 sets, daily range): BP systolic 119–152; BP diastolic 48–99
[2020-12-31] MEDS: METOPROLOL TARTRATE 25MG TABLET PO SCH ×2 (08:18→21:06)
[2020-12-31] MEDS: APIXABAN 5 MG TABLET PO SCH ×2 (08:18→17:19)
[2020-12-31] MEDS: METHYLPREDNISOLONE SOD SUCC 40 MG/ML VIAL IV SCH ×2 (08:19→17:19)
[2020-12-31] MEDS: IPRATROPIUM/ALBUTEROL 0.5-3(2.5)MG/3ML NEB HHN SCH ×3 (09:23→21:58)
[2020-12-31] MEDS: LACTULOSE 20G/30ML UDC PO PRN (10:04)
[2020-12-31] MEDS: DEXTROSE 5% WATER 1,000 ML IV SCH (11:15)
[2021-01-01] VITALS (12 sets, daily range): BP systolic 102–155; BP diastolic 48–85
[2021-01-01] MEDS: IPRATROPIUM/ALBUTEROL 0.5-3(2.5)MG/3ML NEB HHN SCH ×4 (03:25→22:11)
[2021-01-01] MEDS: DEXTROSE 5% WATER 1,000 ML IV SCH (06:24)
[2021-01-01 07:31] LABS: CHLORIDE 105 mEq/L (98-107); HEMATOCRIT. 31.7 % (36.0-48.0); HEMOGLOBIN. 10.3 g/dL (12.0-16.0); MEAN CORPUSCULAR HEMOGLOBIN 26.6 pg (28.0-32.0); MEAN PLATELET VOLUME 10.4 fl (7.4-10.4); PLATELET 132 x1000/uL (130-400); RED BLOOD CELL COUNT 3.86 mill/uL (4.2-5.4); RED CELL DISTRIBUTION WIDTH 15.3 % (11.6-14.6)
[2021-01-01 07:36] LABS: PHOSPHORUS 3.4 mg/dL (2.5-4.9)
[2021-01-01] MEDS: APIXABAN 5 MG TABLET PO SCH ×2 (08:45→16:48)
[2021-01-01] MEDS: METOPROLOL TARTRATE 25MG TABLET PO SCH ×2 (08:45→21:00)
[2021-01-01] MEDS: METHYLPREDNISOLONE SOD SUCC 40 MG/ML VIAL IV SCH ×2 (08:46→16:48)
[2021-01-01 21:22] LABS: PLATELET ESTIMATE NORMAL
[2021-01-01] MEDS: GUAIFENESIN 600MG ER TABLET PO SCH (22:32)
[2021-01-02] VITALS (12 sets, daily range): BP systolic 106–147; BP diastolic 49–72
[2021-01-02] MEDS: DEXTROSE 5% WATER 1,000 ML IV SCH ×2 (02:30→18:37)
[2021-01-02] MEDS: METHYLPREDNISOLONE SOD SUCC 40 MG/ML VIAL IV SCH ×2 (09:36→17:31)
[2021-01-02] MEDS: GUAIFENESIN 600MG ER TABLET PO SCH ×2 (09:36→20:58)
[2021-01-02] MEDS: APIXABAN 5 MG TABLET PO SCH ×2 (09:36→17:31)
[2021-01-02] MEDS: METOPROLOL TARTRATE 25MG TABLET PO SCH ×2 (09:36→20:58)
[2021-01-02] MEDS: IPRATROPIUM/ALBUTEROL 0.5-3(2.5)MG/3ML NEB HHN SCH ×3 (11:06→21:40)
[2021-01-03] VITALS (13 sets, daily range): BP systolic 107–140; BP diastolic 56–79
[2021-01-03] MEDS: IPRATROPIUM/ALBUTEROL 0.5-3(2.5)MG/3ML NEB HHN SCH ×4 (01:56→22:22)
[2021-01-03] MEDS: METHYLPREDNISOLONE SOD SUCC 40 MG/ML VIAL IV SCH ×2 (08:44→17:37)
[2021-01-03] MEDS: APIXABAN 5 MG TABLET PO SCH ×2 (08:44→17:37)
[2021-01-03] MEDS: GUAIFENESIN 600MG ER TABLET PO SCH ×2 (08:44→20:29)
[2021-01-03] MEDS: METOPROLOL TARTRATE 25MG TABLET PO SCH ×2 (08:45→20:29)
[2021-01-03] MEDS: DEXTROSE 5% WATER 1,000 ML IV SCH (19:44)
[2021-01-04] VITALS (14 sets, daily range): BP systolic 111–136; BP diastolic 54–78
[2021-01-04] MEDS: IPRATROPIUM/ALBUTEROL 0.5-3(2.5)MG/3ML NEB HHN SCH ×4 (02:26→22:05)
[2021-01-04 07:04] LABS: HEMATOCRIT. 28.4 % (36.0-48.0); HEMOGLOBIN. 9.4 g/dL (12.0-16.0); MEAN CORPUSCULAR HEMOGLOBIN 26.6 pg (28.0-32.0); MEAN CORPUSCULAR VOLUME 80.8 fL (81.0-99.0); MEAN PLATELET VOLUME 9.6 fl (7.4-10.4); PLATELET 97 x1000/uL (130-400); RED BLOOD CELL COUNT 3.52 mill/uL (4.2-5.4); RED CELL DISTRIBUTION WIDTH 15.5 % (11.6-14.6)
[2021-01-04 07:20] LABS: CHLORIDE 99 mEq/L (98-107)
[2021-01-04] MEDS: METHYLPREDNISOLONE SOD SUCC 40 MG/ML VIAL IV SCH ×2 (09:22→17:30)
[2021-01-04] MEDS: METOPROLOL TARTRATE 25MG TABLET PO SCH ×2 (09:23→21:01)
[2021-01-04] MEDS: APIXABAN 5 MG TABLET PO SCH ×2 (09:23→21:00)
[2021-01-04] MEDS: GUAIFENESIN 600MG ER TABLET PO SCH ×2 (09:23→21:00)
[2021-01-04] MEDS: LACTULOSE 20G/30ML UDC PO PRN (09:25)
[2021-01-04 13:47] LABS: PLATELET ESTIMATE DECREASED
[2021-01-04] MEDS: ALPRAZOLAM 0.5 MG TABLET PO PRN (17:30)
[2021-01-04] MEDS: DEXTROSE 5% WATER 1,000 ML IV SCH (17:56)
[2021-01-05] VITALS (13 sets, daily range): BP systolic 106–137; BP diastolic 56–79
[2021-01-05] MEDS: METHYLPREDNISOLONE SOD SUCC 40 MG/ML VIAL IV SCH ×2 (08:59→17:52)
[2021-01-05] MEDS: GUAIFENESIN 600MG ER TABLET PO SCH ×2 (08:59→20:46)
[2021-01-05] MEDS: METOPROLOL TARTRATE 25MG TABLET PO SCH ×2 (09:00→20:46)
[2021-01-05] MEDS: APIXABAN 5 MG TABLET PO SCH ×2 (09:00→17:52)
[2021-01-05] MEDS: IPRATROPIUM/ALBUTEROL 0.5-3(2.5)MG/3ML NEB HHN SCH ×3 (09:55→20:44)
[2021-01-05] MEDS: DEXTROSE 5% WATER 1,000 ML IV SCH (10:15)
[2021-01-05] MEDS: HYDROCODONE/ACETAMINOPHEN 5/325MG TABLET PO PRN (11:33)
[2021-01-06] VITALS (15 sets, daily range): BP systolic 109–138; BP diastolic 55–77
[2021-01-06] MEDS: IPRATROPIUM/ALBUTEROL 0.5-3(2.5)MG/3ML NEB HHN SCH ×4 (00:52→22:06)
[2021-01-06] MEDS: DEXTROSE 5% WATER 1,000 ML IV SCH (05:10)
[2021-01-06] MEDS: LACTULOSE 20G/30ML UDC PO PRN (09:11)
[2021-01-06] MEDS: GUAIFENESIN 600MG ER TABLET PO SCH ×2 (09:11→21:42)
[2021-01-06] MEDS: METOPROLOL TARTRATE 25MG TABLET PO SCH ×2 (09:11→21:43)
[2021-01-06] MEDS: METHYLPREDNISOLONE SOD SUCC 40 MG/ML VIAL IV SCH ×2 (09:12→17:37)
[2021-01-06] MEDS: ALPRAZOLAM 0.5 MG TABLET PO PRN ×2 (09:42→21:42)
[2021-01-06] MEDS: APIXABAN 5 MG TABLET PO SCH ×2 (10:16→21:42)
[2021-01-07] VITALS (14 sets, daily range): BP systolic 94–140; BP diastolic 33–96
[2021-01-07] MEDS: IPRATROPIUM/ALBUTEROL 0.5-3(2.5)MG/3ML NEB HHN SCH ×4 (03:40→20:56)
[2021-01-07] MEDS: HYDROCODONE/ACETAMINOPHEN 5/325MG TABLET PO PRN ×2 (04:35→19:31)
[2021-01-07] MEDS: GUAIFENESIN 600MG ER TABLET PO SCH ×2 (08:29→20:05)
[2021-01-07] MEDS: APIXABAN 5 MG TABLET PO SCH ×2 (08:30→20:05)
[2021-01-07] MEDS: METOPROLOL TARTRATE 25MG TABLET PO SCH ×2 (08:30→20:05)
[2021-01-07] MEDS: METHYLPREDNISOLONE SOD SUCC 40 MG/ML VIAL IV SCH ×2 (08:30→16:53)
[2021-01-07] MEDS: ALPRAZOLAM 0.5 MG TABLET PO PRN ×2 (11:15→21:58)
[2021-01-08] VITALS (12 sets, daily range): BP systolic 106–144; BP diastolic 55–82
[2021-01-08] MEDS: IPRATROPIUM/ALBUTEROL 0.5-3(2.5)MG/3ML NEB HHN SCH ×4 (01:31→21:10)
[2021-01-08] MEDS: HYDROCODONE/ACETAMINOPHEN 5/325MG TABLET PO PRN ×2 (04:17→16:28)
[2021-01-08 06:46] LABS: HEMATOCRIT. 26.2 % (36.0-48.0); HEMOGLOBIN. 8.5 g/dL (12.0-16.0); MEAN CORPUSCULAR HEMOGLOBIN 26.4 pg (28.0-32.0); MEAN CORPUSCULAR VOLUME 80.9 fL (81.0-99.0); MEAN PLATELET VOLUME 9.2 fl (7.4-10.4); PLATELET 81 x1000/uL (130-400); RED BLOOD CELL COUNT 3.24 mill/uL (4.2-5.4); RED CELL DISTRIBUTION WIDTH 15.9 % (11.6-14.6)
[2021-01-08 06:54] LABS: CHLORIDE 103 mEq/L (98-107)
[2021-01-08] MEDS: GUAIFENESIN 600MG ER TABLET PO SCH ×2 (08:54→21:08)
[2021-01-08] MEDS: APIXABAN 5 MG TABLET PO SCH ×2 (08:54→21:08)
[2021-01-08] MEDS: METOPROLOL TARTRATE 25MG TABLET PO SCH ×2 (08:55→21:08)
[2021-01-08] MEDS: METHYLPREDNISOLONE SOD SUCC 40 MG/ML VIAL IV SCH ×2 (08:55→16:19)
[2021-01-08] MEDS: ZINC SULFATE 220 MG ( 50 ) CAPSULE PO SCH (08:55)
[2021-01-08] MEDS: ASCORBIC ACID 500 MG TABLET PO SCH (08:55)
[2021-01-08 11:10] LABS: PLATELET ESTIMATE SLIGHTLY DECREASED
[2021-01-08] MEDS: ALPRAZOLAM 0.5 MG TABLET PO PRN (21:08)
[2021-01-09] VITALS (12 sets, daily range): BP systolic 101–151; BP diastolic 29–94
[2021-01-09] MEDS: IPRATROPIUM/ALBUTEROL 0.5-3(2.5)MG/3ML NEB HHN SCH ×4 (03:10→21:40)
[2021-01-09] MEDS: HYDROCODONE/ACETAMINOPHEN 5/325MG TABLET PO PRN (06:31)
[2021-01-09 06:44] LABS: HEMATOCRIT. 27.8 % (36.0-48.0); HEMOGLOBIN. 9.2 g/dL (12.0-16.0); MEAN CORPUSCULAR HEMOGLOBIN 26.6 pg (28.0-32.0); MEAN CORPUSCULAR VOLUME 80.8 fL (81.0-99.0); MEAN PLATELET VOLUME 9.1 fl (7.4-10.4); PLATELET 90 x1000/uL (130-400); RED BLOOD CELL COUNT 3.44 mill/uL (4.2-5.4); RED CELL DISTRIBUTION WIDTH 16.4 % (11.6-14.6)
[2021-01-09 07:27] LABS: CHLORIDE 103 mEq/L (98-107)
[2021-01-09] MEDS: ASCORBIC ACID 500 MG TABLET PO SCH (09:22)
[2021-01-09] MEDS: METHYLPREDNISOLONE SOD SUCC 40 MG/ML VIAL IV SCH ×2 (09:22→16:35)
[2021-01-09] MEDS: ZINC SULFATE 220 MG ( 50 ) CAPSULE PO SCH (09:23)
[2021-01-09] MEDS: METOPROLOL TARTRATE 25MG TABLET PO SCH ×2 (09:23→20:11)
[2021-01-09] MEDS: APIXABAN 5 MG TABLET PO SCH ×2 (09:23→20:11)
[2021-01-09] MEDS: GUAIFENESIN 600MG ER TABLET PO SCH ×2 (09:23→20:11)
[2021-01-09] MEDS ORDERED: MORPHINE SULFATE 2 MG/ML CPJ (NOT FOR IM USE) IV NR ×2 (12:00)
[2021-01-09 12:12] LABS: BG BASE EXCESS 5.8 mmol/L (-2.0-2.0); BG CARBOXYHEMOGLOBIN 0.5 % (0.5-1.5); BG DEOXYHEMOGLOBIN 16.1 % (0.0-5.0); BG FRACTION INSPIRED OXYGEN 100; BG HCO3 ACT 29.9 mmol/L (22.0-26.0); BG METHEMOGLOBIN 0.3 % (0.0-1.5); BG OXYGEN SATURATION 83.8 % (92.0-98.5); BG OXYHEMOGLOBIN 83.1 % (94.0-97.0); BG PCO2 41.6 mmHg (35.0-45.0); BG PH 7.474 (7.350-7.450); BG PO2 46.8 mmHg (75.0-100.0); BG SAMPLE SITE RIGHT RADIAL; BG TOTAL HEMOGLOBIN 10.4 g/dL (12.0-18.0); BG VENT MODE HIGH FLOW
[2021-01-09] MEDS ORDERED: MORPHINE SULFATE 2 MG/ML CPJ (NOT FOR IM USE) IV PRN (13:15)
[2021-01-09 13:49] LABS: PLATELET ESTIMATE DECREASED
[2021-01-09] MEDS: MORPHINE SULFATE 2 MG/ML CPJ (NOT FOR IM USE) IV PRN (16:36)
[2021-01-09] MEDS: ALPRAZOLAM 0.25 MG TABLET PO PRN (20:11)
[2021-01-10] VITALS (14 sets, daily range): BP systolic 96–140; BP diastolic 35–87
[2021-01-10] MEDS: IPRATROPIUM/ALBUTEROL 0.5-3(2.5)MG/3ML NEB HHN SCH ×4 (01:50→20:32)
[2021-01-10 02:13] LABS: BG BASE EXCESS 4.8 mmol/L (-2.0-2.0); BG CARBOXYHEMOGLOBIN 0.2 % (0.5-1.5); BG DEOXYHEMOGLOBIN 8.3 % (0.0-5.0); BG FRACTION INSPIRED OXYGEN 100; BG HCO3 ACT 31.1 mmol/L (22.0-26.0); BG METHEMOGLOBIN 0.4 % (0.0-1.5); BG OXYGEN SATURATION 91.6 % (92.0-98.5); BG OXYHEMOGLOBIN 91.1 % (94.0-97.0); BG PCO2 54.4 mmHg (35.0-45.0); BG PH 7.375 (7.350-7.450); BG PO2 65.7 mmHg (75.0-100.0); BG SAMPLE SITE LEFT RADIAL; BG TOTAL HEMOGLOBIN 11.4 g/dL (12.0-18.0); BG VENT MODE MASK - BIPAP
[2021-01-10] MEDS ORDERED: HYDRALAZINE 20MG/ML VIAL IV PRN (02:30)
[2021-01-10] MEDS: ZINC SULFATE 220 MG ( 50 ) CAPSULE PO SCH (09:36)
[2021-01-10] MEDS: APIXABAN 5 MG TABLET PO SCH ×2 (09:36→20:09)
[2021-01-10] MEDS: ASCORBIC ACID 500 MG TABLET PO SCH (09:36)
[2021-01-10] MEDS: METHYLPREDNISOLONE SOD SUCC 40 MG/ML VIAL IV SCH ×2 (09:36→17:50)
[2021-01-10] MEDS: GUAIFENESIN 600MG ER TABLET PO SCH ×2 (09:36→20:08)
[2021-01-10 11:06] LABS: CHLORIDE 104 mEq/L (98-107)
[2021-01-10 11:13] LABS: HDL CHOLESTEROL 91 mg/dL (40-59); LDL CHOLESTEROL 58 mg/dL (5-100)
[2021-01-10 11:14] LABS: T4 FREE 1.35 ng/dL (0.76-1.46)
[2021-01-10 16:11] LABS: CREATINE KINASE MB FRACTION 2.1 ng/mL (0.5-3.6)
[2021-01-10] MEDS ORDERED: IOHEXOL 350 MG/ML 200ML INFUS..BTL IV ONE (20:04)
[2021-01-11] VITALS (13 sets, daily range): BP systolic 110–157; BP diastolic 25–92
[2021-01-11 02:09] LABS: CREATINE KINASE MB FRACTION 2.3 ng/mL (0.5-3.6)
[2021-01-11] MEDS: IPRATROPIUM/ALBUTEROL 0.5-3(2.5)MG/3ML NEB HHN SCH ×4 (02:31→20:05)
[2021-01-11 06:05] LABS: HEMOGLOBIN. 8.7 g/dL (12.0-16.0); MEAN CORPUSCULAR HEMOGLOBIN 27.2 pg (28.0-32.0); MEAN CORPUSCULAR VOLUME 81.4 fL (81.0-99.0); MEAN PLATELET VOLUME 9.3 fl (7.4-10.4); PLATELET 79 x1000/uL (130-400); RED BLOOD CELL COUNT 3.19 mill/uL (4.2-5.4); RED CELL DISTRIBUTION WIDTH 16.4 % (11.6-14.6)
[2021-01-11 06:24] LABS: CHLORIDE 105 mEq/L (98-107)
[2021-01-11 06:32] LABS: CREATINE KINASE 68 IU/L (26-192)
[2021-01-11 06:34] LABS: CREATINE KINASE MB FRACTION 2.1 ng/mL (0.5-3.6)
[2021-01-11] MEDS: MORPHINE SULFATE 2 MG/ML CPJ (NOT FOR IM USE) IV PRN (06:42)
[2021-01-11] MEDS: ZINC SULFATE 220 MG ( 50 ) CAPSULE PO SCH (09:23)
[2021-01-11] MEDS: ASCORBIC ACID 500 MG TABLET PO SCH (09:23)
[2021-01-11] MEDS: GUAIFENESIN 600MG ER TABLET PO SCH ×2 (09:23→20:26)
[2021-01-11] MEDS: APIXABAN 5 MG TABLET PO SCH ×2 (09:23→20:25)
[2021-01-11] MEDS: METHYLPREDNISOLONE SOD SUCC 40 MG/ML VIAL IV SCH ×2 (09:23→17:37)
[2021-01-11] MEDS ORDERED: BENZONATATE 100MG CAPSULE PO PRN (12:30)
[2021-01-11] MEDS ORDERED: FUROSEMIDE 20MG/2ML VIAL IVP NR (13:45)
[2021-01-11 16:14] LABS: PLATELET ESTIMATE DECREASED
[2021-01-12] VITALS (12 sets, daily range): BP systolic 110–169; BP diastolic 44–102
[2021-01-12] MEDS: IPRATROPIUM/ALBUTEROL 0.5-3(2.5)MG/3ML NEB HHN SCH ×4 (01:30→20:26)
[2021-01-12] MEDS: ALPRAZOLAM 0.25 MG TABLET PO PRN (06:36)
[2021-01-12 07:01] LABS: CHLORIDE 104 mEq/L (98-107)
[2021-01-12] MEDS: MORPHINE SULFATE 2 MG/ML CPJ (NOT FOR IM USE) IV PRN (07:09)
[2021-01-12 07:39] LABS: BG BASE EXCESS 8.3 mmol/L (-2.0-2.0); BG CARBOXYHEMOGLOBIN 0.3 % (0.5-1.5); BG FRACTION INSPIRED OXYGEN 100; BG HCO3 ACT 33.5 mmol/L (22.0-26.0); BG METHEMOGLOBIN 0.2 % (0.0-1.5); BG OXYHEMOGLOBIN 91.5 % (94.0-97.0); BG PCO2 50.4 mmHg (35.0-45.0); BG PH 7.441 (7.350-7.450); BG PO2 63.7 mmHg (75.0-100.0); BG SAMPLE SITE LEFT RADIAL; BG TOTAL HEMOGLOBIN 10.3 g/dL (12.0-18.0); BG VENT MODE MASK - BIPAP
[2021-01-12 07:49] LABS: HEMATOCRIT. 28.5 % (36.0-48.0); HEMOGLOBIN. 9.5 g/dL (12.0-16.0); MEAN CORPUSCULAR HEMOGLOBIN 26.9 pg (28.0-32.0); MEAN CORPUSCULAR VOLUME 81.1 fL (81.0-99.0); MEAN PLATELET VOLUME 9.2 fl (7.4-10.4); PLATELET 107 x1000/uL (130-400); RED BLOOD CELL COUNT 3.52 mill/uL (4.2-5.4); RED CELL DISTRIBUTION WIDTH 16.3 % (11.6-14.6)
[2021-01-12] MEDS: GUAIFENESIN 600MG ER TABLET PO SCH (08:40)
[2021-01-12] MEDS: ASCORBIC ACID 500 MG TABLET PO SCH (08:40)
[2021-01-12] MEDS: METHYLPREDNISOLONE SOD SUCC 40 MG/ML VIAL IV SCH (08:40)
[2021-01-12] MEDS: ZINC SULFATE 220 MG ( 50 ) CAPSULE PO SCH (08:40)
[2021-01-12] MEDS: APIXABAN 5 MG TABLET PO SCH ×2 (08:40→22:04)
[2021-01-12] MEDS ORDERED: FENTANYL CITRATE/PF 1,000 MCG in SODIUM CHLORIDE 0.9% 80 ML IV PRN (13:30)
[2021-01-12] MEDS ORDERED: PROPOFOL 10MG/ML 100ML 100 ML IV PRN (13:30)
[2021-01-12] MEDS ORDERED: FENTANYL CITRATE 2,500 MCG in SODIUM CHLORIDE 0.9% 200 ML IV PRN (13:45)
[2021-01-12] MEDS: LORAZEPAM 2MG/ML CPJ IV PRN (22:04)
[2021-01-12 23:45] LABS: PLATELET ESTIMATE DECREASED
[2021-01-13] VITALS (11 sets, daily range): BP systolic 91–133; BP diastolic 38–95
[2021-01-13] MEDS: LORAZEPAM 2MG/ML CPJ IV PRN ×3 (00:36→21:23)
[2021-01-13] MEDS: IPRATROPIUM/ALBUTEROL 0.5-3(2.5)MG/3ML NEB HHN SCH ×4 (02:49→20:17)
[2021-01-13 07:04] LABS: HEMATOCRIT. 27.8 % (36.0-48.0); HEMOGLOBIN. 9.1 g/dL (12.0-16.0); MEAN CORPUSCULAR HEMOGLOBIN 26.4 pg (28.0-32.0); MEAN CORPUSCULAR VOLUME 80.5 fL (81.0-99.0); MEAN PLATELET VOLUME 8.9 fl (7.4-10.4); PLATELET 98 x1000/uL (130-400); RED BLOOD CELL COUNT 3.45 mill/uL (4.2-5.4); RED CELL DISTRIBUTION WIDTH 16.6 % (11.6-14.6)
[2021-01-13 07:19] LABS: CHLORIDE 106 mEq/L (98-107)
[2021-01-13] MEDS: METHYLPREDNISOLONE SOD SUCC 40 MG/ML VIAL IV SCH (08:54)
[2021-01-13] MEDS: APIXABAN 5 MG TABLET PO SCH ×2 (08:54→20:39)
[2021-01-13] MEDS: MORPHINE SULFATE 2 MG/ML CPJ (NOT FOR IM USE) IV PRN ×3 (08:56→21:23)
[2021-01-13 11:34] LABS: BG BASE EXCESS 4.3 mmol/L (-2.0-2.0); BG CARBOXYHEMOGLOBIN 0.3 % (0.5-1.5); BG DEOXYHEMOGLOBIN 5.6 % (0.0-5.0); BG METHEMOGLOBIN 0.2 % (0.0-1.5); BG OXYGEN SATURATION 94.4 % (92.0-98.5); BG OXYHEMOGLOBIN 93.9 % (94.0-97.0); BG PCO2 38.2 mmHg (35.0-45.0); BG PH 7.483 (7.350-7.450); BG PO2 72.3 mmHg (75.0-100.0); BG SAMPLE SITE RIGHT RADIAL; BG TOTAL HEMOGLOBIN 9.7 g/dL (12.0-18.0); BG TOTAL RESPIRATORY RATE 29 b/min; BG VENT MODE MASK - BIPAP
[2021-01-13] MEDS ORDERED: DIGOXIN 500MCG/2ML AMP IV SCH (12:45)
[2021-01-13 13:13] LABS: PLATELET ESTIMATE DECREASED
[2021-01-14] VITALS (12 sets, daily range): BP systolic 108–157; BP diastolic 65–86
[2021-01-14] MEDS: IPRATROPIUM/ALBUTEROL 0.5-3(2.5)MG/3ML NEB HHN SCH ×4 (00:23→20:45)
[2021-01-14] MEDS: MORPHINE SULFATE 2 MG/ML CPJ (NOT FOR IM USE) IV PRN ×4 (01:00→16:08)
[2021-01-14] MEDS: LORAZEPAM 2MG/ML CPJ IV PRN ×4 (01:24→22:46)
[2021-01-14] MEDS: APIXABAN 5 MG TABLET PO SCH ×3 (09:00→21:00)
[2021-01-14] MEDS: LACTULOSE 20G/30ML UDC PO PRN (09:12)
[2021-01-14] MEDS: METHYLPREDNISOLONE SOD SUCC 40 MG/ML VIAL IV SCH (09:13)
[2021-01-14 09:22] LABS: BG CARBOXYHEMOGLOBIN 0.3 % (0.5-1.5); BG FRACTION INSPIRED OXYGEN 100; BG HCO3 ACT 30.4 mmol/L (22.0-26.0); BG METHEMOGLOBIN 0.3 % (0.0-1.5); BG OXYHEMOGLOBIN 96.4 % (94.0-97.0); BG PCO2 43.3 mmHg (35.0-45.0); BG PH 7.464 (7.350-7.450); BG PO2 92.3 mmHg (75.0-100.0); BG SAMPLE SITE LEFT RADIAL; BG TOTAL HEMOGLOBIN 10.4 g/dL (12.0-18.0)
[2021-01-14] MEDS ORDERED: DIGOXIN 500MCG/2ML AMP IV NR (16:30)
[2021-01-15] VITALS (19 sets, daily range): BP systolic 113–159; BP diastolic 62–99
[2021-01-15] MEDS: IPRATROPIUM/ALBUTEROL 0.5-3(2.5)MG/3ML NEB HHN SCH ×4 (01:40→21:17)
[2021-01-15] MEDS: MORPHINE SULFATE 2 MG/ML CPJ (NOT FOR IM USE) IV PRN ×3 (04:00→21:05)
[2021-01-15] MEDS: LORAZEPAM 2MG/ML CPJ IV PRN ×4 (06:06→20:35)
[2021-01-15] MEDS ORDERED: DEXT 5%/0.45% NACL 1000ML 1,000 ML IV STA (08:32)
[2021-01-15] MEDS: APIXABAN 5 MG TABLET PO SCH ×2 (09:00→20:39)
[2021-01-15] MEDS: METHYLPREDNISOLONE SOD SUCC 40 MG/ML VIAL IV SCH (10:39)
[2021-01-15 13:21] LABS: BG BASE EXCESS 4.3 mmol/L (-2.0-2.0); BG CARBOXYHEMOGLOBIN 0.3 % (0.5-1.5); BG DEOXYHEMOGLOBIN 1.4 % (0.0-5.0); BG FRACTION INSPIRED OXYGEN 100; BG HCO3 ACT 28.9 mmol/L (22.0-26.0); BG METHEMOGLOBIN 0.1 % (0.0-1.5); BG OXYGEN SATURATION 98.6 % (92.0-98.5); BG OXYHEMOGLOBIN 98.2 % (94.0-97.0); BG PCO2 43.7 mmHg (35.0-45.0); BG PH 7.439 (7.350-7.450); BG PO2 159.1 mmHg (75.0-100.0); BG SAMPLE SITE LEFT RADIAL; BG TOTAL HEMOGLOBIN 10.7 g/dL (12.0-18.0); BG VENT MODE MASK - BIPAP
[2021-01-16] VITALS (18 sets, daily range): BP systolic 106–152; BP diastolic 60–101
[2021-01-16] MEDS: IPRATROPIUM/ALBUTEROL 0.5-3(2.5)MG/3ML NEB HHN SCH ×4 (02:42→21:02)
[2021-01-16] MEDS: LORAZEPAM 2MG/ML CPJ IV PRN ×4 (03:54→19:56)
[2021-01-16] MEDS: MORPHINE SULFATE 2 MG/ML CPJ (NOT FOR IM USE) IV PRN ×5 (05:38→23:00)
[2021-01-16] MEDS: APIXABAN 5 MG TABLET PO SCH ×2 (09:00→20:20)
[2021-01-16] MEDS ORDERED: DEXT 5%/0.45% NACL 1000ML 1,000 ML IV SCH (11:45)
[2021-01-16] MEDS: METHYLPREDNISOLONE SOD SUCC 40 MG/ML VIAL IV SCH (12:10)
[2021-01-16] MEDS: DEXT 5%/0.45% NACL 1000ML 1,000 ML IV SCH (12:11)
[2021-01-16 12:27] LABS: BG BASE EXCESS 3.9 mmol/L (-2.0-2.0); BG CARBOXYHEMOGLOBIN 0.3 % (0.5-1.5); BG DEOXYHEMOGLOBIN 8.5 % (0.0-5.0); BG HCO3 ACT 28.6 mmol/L (22.0-26.0); BG METHEMOGLOBIN 0.3 % (0.0-1.5); BG OXYGEN SATURATION 91.4 % (92.0-98.5); BG OXYHEMOGLOBIN 90.9 % (94.0-97.0); BG PCO2 43.6 mmHg (35.0-45.0); BG PH 7.435 (7.350-7.450); BG PO2 61.3 mmHg (75.0-100.0); BG SAMPLE SITE LEFT RADIAL; BG TOTAL HEMOGLOBIN 9.8 g/dL (12.0-18.0); BG VENT MODE MASK - BIPAP
[2021-01-17] VITALS (15 sets, daily range): BP systolic 111–164; BP diastolic 56–112
[2021-01-17] MEDS: LORAZEPAM 2MG/ML CPJ IV PRN (01:32)
[2021-01-17] MEDS: MORPHINE SULFATE 2 MG/ML CPJ (NOT FOR IM USE) IV PRN (02:41)
[2021-01-17] MEDS: IPRATROPIUM/ALBUTEROL 0.5-3(2.5)MG/3ML NEB HHN SCH ×4 (02:55→21:29)
[2021-01-17] MEDS: APIXABAN 5 MG TABLET PO SCH ×2 (09:00→20:24)
[2021-01-17] MEDS: METHYLPREDNISOLONE SOD SUCC 40 MG/ML VIAL IV SCH (09:52)
[2021-01-17] MEDS: DEXT 5%/0.45% NACL 1000ML 1,000 ML IV SCH (11:42)
[2021-01-17 12:21] LABS: HEMOGLOBIN. 9.7 g/dL (12.0-16.0); MEAN CORPUSCULAR HEMOGLOBIN 26.6 pg (28.0-32.0); MEAN CORPUSCULAR VOLUME 85.1 fL (81.0-99.0); MEAN PLATELET VOLUME 9.7 fl (7.4-10.4); PLATELET 79 x1000/uL (130-400); RED BLOOD CELL COUNT 3.65 mill/uL (4.2-5.4); RED CELL DISTRIBUTION WIDTH 17.1 % (11.6-14.6)
[2021-01-17 12:28] LABS: CHLORIDE 126 mEq/L (98-107)
[2021-01-17 14:14] LABS: NUCLEATED RED BLOOD CELLS 8 /100 WBC; PLATELET ESTIMATE DECREASED
[2021-01-17] MEDS: DEXTROSE 5% WATER 1,000 ML IV SCH (14:23)
[2021-01-17] MEDS ORDERED: KCL 20MEQ/100ML PREMIX 100 ML IV NR (15:30)
[2021-01-17] MEDS ORDERED: DIGOXIN 125MCG TABLET PO SCH (18:00)
[2021-01-17] MEDS ORDERED: POTASSIUM CHLORIDE INJ 40 MEQ in DEXT 5% WATER 250 ML IV NR (18:00)
[2021-01-18] VITALS: BP 126/40
[2021-01-18 01:03] LABS: CHLORIDE 129 mEq/L (98-107)
[2021-01-18 02:00] VITALS: BP 132/72
[2021-01-18] MEDS: IPRATROPIUM/ALBUTEROL 0.5-3(2.5)MG/3ML NEB HHN SCH ×2 (03:16→08:17)
[2021-01-18 04:00] VITALS: BP 124/76
[2021-01-18] MEDS: DEXTROSE 5% WATER 1,000 ML IV SCH (05:45)
[2021-01-18 06:00] VITALS: BP 129/89
[2021-01-18 07:00] VITALS: BP 145/84
[2021-01-18 07:27] LABS: CHLORIDE 127 mEq/L (98-107)
[2021-01-18] MEDS ORDERED: MORPHINE SULFATE 2 MG/ML CPJ (NOT FOR IM USE) IV PRN (07:45)
[2021-01-18] MEDS ORDERED: LORAZEPAM 2MG/ML CPJ IV PRN (07:45)
[2021-01-18 08:09] VITALS: BP 144/103
== END 2021-01-18 18:15 | disposition expired | DRG 871 ==
LOC: ER 02:24 → MICUSO 05:18 → 7WST 11-25 09:17 → 5EST 12-24 18:09
PROVIDERS: ADMIT Internal Medicine; ATTEND Internal Medicine
PROC: 5A09557 Assistance with Respiratory Ventilation, Greater than 96 Consecutive Hours, Continuous Positive Airway Pressure (ICD-10-PCS; principal; 2020-11-23)
PROC: 5A1D70Z Performance of Urinary Filtration, Intermittent, Less than 6 Hours Per Day (ICD-10-PCS; 2020-12-04)
PROC: 06HM33Z Insertion of Infusion Device into Right Femoral Vein, Percutaneous Approach (ICD-10-PCS; 2020-12-04)
PROC: B54BZZA Ultrasonography of Right Lower Extremity Veins, Guidance (ICD-10-PCS; 2020-12-04)
PROC: 5A1D70Z Performance of Urinary Filtration, Intermittent, Less than 6 Hours Per Day (ICD-10-PCS; 2020-12-07)
PROC: 5A0955A Assistance with Respiratory Ventilation, Greater than 96 Consecutive Hours, High Flow/Velocity Cannula (ICD-10-PCS; 2020-12-24)
PROC: 5A09557 Assistance with Respiratory Ventilation, Greater than 96 Consecutive Hours, Continuous Positive Airway Pressure (ICD-10-PCS; 2021-01-09)
DX: A41.89 Other specified sepsis (principal); U07.1 COVID-19; J96.01 Acute respiratory failure with hypoxia; J12.82 Pneumonia due to coronavirus disease 2019; E43 Unspecified severe protein-calorie malnutrition; G93.41 Metabolic encephalopathy; N17.0 Acute kidney failure with tubular necrosis; E87.0 Hyperosmolality and hypernatremia; I82.402 Acute embolism and thrombosis of unspecified deep veins of left lower extremity; J47.0 Bronchiectasis with acute lower respiratory infection; D69.6 Thrombocytopenia, unspecified; E86.0 Dehydration; Z66 Do not resuscitate; R74.01 Elevation of levels of liver transaminase levels; D64.9 Anemia, unspecified; I48.0 Paroxysmal atrial fibrillation; R73.9 Hyperglycemia, unspecified; Z68.27 Body mass index [BMI] 27.0-27.9, adult; Z78.1 Physical restraint status; Z79.01 Long term (current) use of anticoagulants
CPT/HCPCS: 36415; 36556; 36600; 71045; 71275; 76770; 76937; 80048; 80053; 80061; 81003; 82040; 82375; 82550; 82553; 82728; 82805; 82962; 83036; 83605; 83615; 83735; 83880; 84100; 84134; 84145; 84439; 84443; 84484; 85025; 85027; 85379; 85384; 87426; 87635; 87804; 93005; 93306; 93970; 94640; 94660; 97110; 97162; 97166; 99285; A6261; C1752; C1893; J0360; J0456; J0696; J1100; J1160; J1940; J2060; J2270; J2405; J2704; J2920; J3480; J3490; J7040; J7042; J7060; J7070; Q9967; A4315